=== PATIENT | male | born 1935 | race Caucasian/White ===

== ENCOUNTER 2019-09-16 09:37 | Inpatient (IN) ==
[2019-09-16 10:14] LABS: POC Blood Urea Nitrogen 10 mg/dl (8-23); POC CO2 26 mmol/L (22-30); POC Calcium, Ionized 1.14 mmol/L (1.16-1.32); POC Chloride 93 mmol/L (96-108); POC Creatinine 1.1 mg/dl (0.7-1.2); POC Glucose, Random 104 mg/dL (70-105); POC Potassium 4.8 mmol/L (3.3-5.1); POC Sodium 126 mmol/L (133-145)
[2019-09-16] MEDS ORDERED: 0.9 % SODIUM CHLORIDE 1,000 ML IV ONE (10:15)
--- NOTE | 2019-09-16 10:47 | Emergency Department Note ---
Weakness HPI - General Chief complaint: Weakness Stated complaint: weakness, SOB, confusion Time Seen by Provider: 09/16/19 09:54 Source: patient Mode of arrival: ambulatory Limitations: no limitations - History of Present Illness HPI Narrative: 84-year-old male presents with generalized weakness and some increasing in shortness of breath. States he is always short of breath but is worse than normal. Also feels generally weak. No fever or chills but states he is always cold so he wanted no. No nausea, vomiting, or diarrhea. States he does not h ave much appetite but that is usual for him. It is easier for him to breathe sitting up. He does have significant pedal edema but states this is chronic for him. Denies chest pain, no pain anywhere. States he does have a history of a triple bypass back in the s. He denies palpitations Associated symptoms: Reports: confusion (Family reports increasing confusion), loss of appetite (However chronic), shortness of breath. Denies: chest pain, diaphoresis, dysuria, fever/chills, headaches, nausea/vomiting, myalgias, rash, syncope - Related Data Home Medications Medication Instructions Recorded Confirmed levothyroxine 75 mcg tablet 75 mcg PO QAM tab 06/18/19 09/16/19 lisinopril 10 mg tablet 10 mg PO QAM tab 06/18/19 09/16/19 potassium chloride 10 mEq 10 meq PO QDAY 06/18/19 09/16/19 tablet,extended release(part/cryst) Previous Rx's Medication Instructions Recorded metoprolol succinate 25 mg 25 mg PO QDAY #30 tab 09/03/19 tablet,extended release 24 hr Allergies Allergy/AdvReac Type Severity Reaction Status Date / Time No Known Drug Intolerances Allergy Unknown Unknown Verified 09/16/19 09:41 Review of Systems All systems ED: reviewed and negative except as stated. Past Medical History - Past Medical History [facility] Narrative: Medical History (Last Reviewed 08/27/19 @ 09:56 by Maximiliano Brown MD) Pneumonia (Chronic ~07/2004) Low back pain syndrome (Chronic) Urinary urgency (Chronic) PVD (peripheral vascular disease) (Chronic) Right carotid bruit (Chronic) Hypothyroidism (Chronic) CAD (coronary artery disease) (Chronic) Hyperlipidemia (Chronic) Hypertension (Chronic) Postural hypotension (Chronic) Impacted cerumen, bilateral (Chronic) FH: stroke (Chronic) Encounter for long-term (current) use of medications (Chronic) Anxiety (Chronic) Encounter for smoking cessation counseling (Chronic) Past Surgical History (Last Reviewed 08/27/19 @ 09:56 by Maximiliano Brown MD) History of colonoscopy (Chronic ~2006) History of prostatectomy (Chronic ~2001) History of carotid endarterectomy (Chronic) History of aorto-femoral bypass (Chronic) History of coronary artery bypass graft (Chronic ~08/2001) Medical history: Reports: other (History of bigeminy) - Social History smoking status: Current every day smoker Alcohol use: Reports: None Drug use: Reports: none Physical Exam Limitations: no limitations General appearance: alert (Alert and oriented to person, place, time and situation however he does get confused at times.) Head: atraumatic, normocephalic, normal inspection Eye: Present: normal appearance. Absent: conjunctival injection ENT: Present: normal oropharynx, mucous membranes moist, TM's normal bilaterally Neck: Present: normal inspection, trachea midline Chest: Present: symmetric chest wall rise Respiratory: Present: normal lung sounds bilaterally, other (Diminished in the bases bilaterally otherwise clear throughout). Absent: respiratory distress, rales/crackles, accessory muscle use Cardiovascular: Present: normal heart sounds. Absent: normal rhythm (Bigeminy) Abdominal: Present: soft, normal bowel sounds. Absent: distention, tenderness, guarding, mass Extremities: Present: pedal edema (2+ to ankles and feet bilaterally). Absent: tenderness Neurological: Present: alert, oriented X3 Psychiatric: Present: normal affect, normal mood Skin: Present: warm, dry, intact Course Course Narrative: I did speak with her primary care provider, Dr. Brown and he states atrial fibrillation as well as bigeminy is chronic for this patient. Unfortunately were not able to pull up records or an EKG more recent than 2003. @ 1215 we have a call into hospitalist to talk about possible admission. At 1415, hospitalist agrees to accept this patient, Dr. Fernando Vital Signs Temperature 97.8 F 09/16/19 09:38 Pulse Rate 84 09/16/19 09:38 Respiratory Rate 18 09/16/19 09:38 Blood Pressure 165/75 09/16/19 09:38 Pulse Oximetry (%) 96 09/16/19 09:38 Temperature 97.8 F 09/16/19 09:38 Pulse Rate 68 09/16/19 12:16 Respiratory Rate 18 09/16/19 13:16 Blood Pressure 165/73 09/16/19 13:16 Pulse Oximetry (%) 93 09/16/19 13:16 Weakness - Lab Data Lab results reviewed: Yes I reviewed the patient's lab results. Result diagrams: 09/16/19 10:00 09/16/19 10:00 Lab Results 09/16/19 09/16/19 09/16/19 Range/Units 09:50 10:00 10:00 WBC 9.2 (4.5-11.0) K/mcL RBC 3.97 L (4.50-5.90) M/mcL Hgb 12.8 L (13.5-16.5) g/dL Hct 38.2 L (41.0-55.0) % POC Hct 40.0 L (41.0-55.0) % MCV 96.3 (80.0-100.0) fL MCH 32.2 (26.0-34.0) pg MCHC 33.4 (31.0-36.0) g/dL RDW 12.6 (11.5-14.5) % Plt Count 477 H (140-440) K/mcL MPV 6.8 L (7.4-10.4) fL Total Counted 100 Seg Neutrophils % 81 H (38-78) % Band Neutrophils % Not Reportable Lymphocytes % 13 L (15-49) % Monocytes % (Manual) 6 (1-12) % Platelet Estimate Increased A (NORMAL) RBC Morphology Normal (NORMAL) VBG Lactic Acid (0.5-2.0) mmol/L POC Sodium 126 L (133-145) mmol/L Sodium 126 L (133-145) mmol/L POC Potassium 4.8 (3.3-5.1) mmol/L Potassium 4.7 (3.3-5.1) mmol/L POC Chloride 93 L (96-108) mmol/L Chloride 92 L (96-108) mmol/L Carbon Dioxide 21 L (22-30) mmol/L POC Total CO2 26 (22-30) mmol/L Anion Gap 13.0 (8-16) POC BUN 10 (8-23) mg/dl BUN 11 (8-23) mg/dl Creatinine 1.0 (0.7-1.2) mg/dl POC Creatinine 1.1 (0.7-1.2) mg/dl GFR Calculation 68 Glucose 105 (70-105) mg/dL POC Glucose 104 (70-105) mg/dL Calcium 9.2 (8.6-10.4) mg/dl POC WB Ioniz Calcium 1.14 L (1.16-1.32) mmol/L Total Bilirubin 0.8 (0.0-1.0) mg/dL AST 20 (0-37) U/l ALT 11 (0-40) U/l Alkaline Phosphatase 67 (39-117) U/L Troponin T (0-0.03) ng/ml NT-Pro-B Natriuret Pep (0-450) pg/ml Total Protein 6.5 (5.9-8.4) gm/dL Albumin 4.0 (3.2-5.2) gm/dL Globulin 2.5 (2.2-3.7) gm/dL Albumin/Globulin Ratio 1.6 (1.0-2.3) TSH (0.27-5.01) uIU/ml Urine Color Yellow Urine Appearance Clear Urine pH 6.0 (5.0-9.0) Ur Specific [place] 1.018 (1.000-1.035) Urine Protein Neg (NEG) mg/dL Urine Glucose (UA) Negative (NEG) mg/dL Urine Ketones Neg (NEG) mg/dL Urine Occult Blood Neg (<0.03) mg/dL Urine Nitrate Neg (NEG) Urine Bilirubin Neg (NEG) mg/dL Urine Urobilinogen Neg (NEG) mg/dL Ur Leukocyte Esterase Neg (NEG) /uL Urine RBC 1 (0-1) /hpf Urine WBC 1 (0-4) /hpf Ur Squamous Epith Cells < 1 (0-4) /hpf Urine Bacteria 0 (0) /hpf Hyaline Casts 4 H (0-2) /lpf Urine Mucus Few (0) /hpf Ur Culture Indicated? No 09/16/19 09/16/19 09/16/19 Range/Units 10:00 10:00 10:00 WBC (4.5-11.0) K/mcL RBC (4.50-5.90) M/mcL Hgb (13.5-16.5) g/dL Hct (41.0-55.0) % POC Hct (41.0-55.0) % MCV (80.0-100.0) fL MCH (26.0-34.0) pg MCHC (31.0-36.0) g/dL RDW (11.5-14.5) % Plt Count (140-440) K/mcL MPV (7.4-10.4) fL Total Counted Seg Neutrophils % (38-78) % Band Neutrophils % Lymphocytes % (15-49) % Monocytes % (Manual) (1-12) % Platelet Estimate (NORMAL) RBC Morphology (NORMAL) VBG Lactic Acid 1.6 (0.5-2.0) mmol/L POC Sodium (133-145) mmol/L Sodium (133-145) mmol/L POC Potassium (3.3-5.1) mmol/L Potassium (3.3-5.1) mmol/L POC Chloride (96-108) mmol/L Chloride (96-108) mmol/L Carbon Dioxide (22-30) mmol/L POC Total CO2 (22-30) mmol/L Anion Gap (8-16) POC BUN (8-23) mg/dl BUN (8-23) mg/dl Creatinine (0.7-1.2) mg/dl POC Creatinine (0.7-1.2) mg/dl GFR Calculation Glucose (70-105) mg/dL POC Glucose (70-105) mg/dL Calcium (8.6-10.4) mg/dl POC WB Ioniz Calcium (1.16-1.32) mmol/L Total Bilirubin (0.0-1.0) mg/dL AST (0-37) U/l ALT (0-40) U/l Alkaline Phosphatase (39-117) U/L Troponin T < 0.01 (0-0.03) ng/ml NT-Pro-B Natriuret Pep 2552.0 H (0-450) pg/ml Total Protein (5.9-8.4) gm/dL Albumin (3.2-5.2) gm/dL Globulin (2.2-3.7) gm/dL Albumin/Globulin Ratio (1.0-2.3) TSH (0.27-5.01) uIU/ml Urine Color Urine Appearance Urine pH (5.0-9.0) Ur Specific [place] (1.000-1.035) Urine Protein (NEG) mg/dL Urine Glucose (UA) (NEG) mg/dL Urine Ketones (NEG) mg/dL Urine Occult Blood (<0.03) mg/dL Urine Nitrate (NEG) Urine Bilirubin (NEG) mg/dL Urine Urobilinogen (NEG) mg/dL Ur Leukocyte Esterase (NEG) /uL Urine RBC (0-1) /hpf Urine WBC (0-4) /hpf Ur Squamous Epith Cells (0-4) /hpf Urine Bacteria (0) /hpf Hyaline Casts (0-2) /lpf Urine Mucus (0) /hpf Ur Culture Indicated? 09/16/19 Range/Units 10:00 WBC (4.5-11.0) K/mcL RBC (4.50-5.90) M/mcL Hgb (13.5-16.5) g/dL Hct (41.0-55.0) % POC Hct (41.0-55.0) % MCV (80.0-100.0) fL MCH (26.0-34.0) pg MCHC (31.0-36.0) g/dL RDW (11.5-14.5) % Plt Count (140-440) K/mcL MPV (7.4-10.4) fL Total Counted Seg Neutrophils % (38-78) % Band Neutrophils % Lymphocytes % (15-49) % Monocytes % (Manual) (1-12) % Platelet Estimate (NORMAL) RBC Morphology (NORMAL) VBG Lactic Acid (0.5-2.0) mmol/L POC Sodium (133-145) mmol/L Sodium (133-145) mmol/L POC Potassium (3.3-5.1) mmol/L Potassium (3.3-5.1) mmol/L POC Chloride (96-108) mmol/L Chloride (96-108) mmol/L Carbon Dioxide (22-30) mmol/L POC Total CO2 (22-30) mmol/L Anion Gap (8-16) POC BUN (8-23) mg/dl BUN (8-23) mg/dl Creatinine (0.7-1.2) mg/dl POC Creatinine (0.7-1.2) mg/dl GFR Calculation Glucose (70-105) mg/dL POC Glucose (70-105) mg/dL Calcium (8.6-10.4) mg/dl POC WB Ioniz Calcium (1.16-1.32) mmol/L Total Bilirubin (0.0-1.0) mg/dL AST (0-37) U/l ALT (0-40) U/l Alkaline Phosphatase (39-117) U/L Troponin T (0-0.03) ng/ml NT-Pro-B Natriuret Pep (0-450) pg/ml Total Protein (5.9-8.4) gm/dL Albumin (3.2-5.2) gm/dL Globulin (2.2-3.7) gm/dL Albumin/Globulin Ratio (1.0-2.3) TSH 1.05 (0.27-5.01) uIU/ml Urine Color Urine Appearance Urine pH (5.0-9.0) Ur Specific [place] (1.000-1.035) Urine Protein (NEG) mg/dL Urine Glucose (UA) (NEG) mg/dL Urine Ketones (NEG) mg/dL Urine Occult Blood (<0.03) mg/dL Urine Nitrate (NEG) Urine Bilirubin (NEG) mg/dL Urine Urobilinogen (NEG) mg/dL Ur Leukocyte Esterase (NEG) /uL Urine RBC (0-1) /hpf Urine WBC (0-4) /hpf Ur Squamous Epith Cells (0-4) /hpf Urine Bacteria (0) /hpf Hyaline Casts (0-2) /lpf Urine Mucus (0) /hpf Ur Culture Indicated? - Radiology Data Radiology results reviewed: Yes I reviewed the patient's radiology results. Disposition Pt seen by [facility]LECTRIC[facility] OFFICE/PA only: Yes Clinical Impression: Generalized weakness, SOB (shortness of breath), Hyponatremia, Pedal edema Disposition: Xfer As Outpt/Obs ([facility]) Condition: Fair Referrals: Maximiliano Brown MD [Primary Care Provider] - Time of Disposition: 14:17
[2019-09-16 10:53] LABS: Hematocrit 38.2 % (41.0-55.0); Hemoglobin 12.8 g/dL (13.5-16.5); Mean Cell Volume 96.3 fL (80.0-100.0); Mean Corpuscular HGB Conc 33.4 g/dL (31.0-36.0); Mean Platelet Volume 6.8 fL (7.4-10.4); Platelet Count 477 K/mcL (140-440); RBC 3.97 M/mcL (4.50-5.90); Red Cell Distribution Width 12.6 % (11.5-14.5); WBC 9.2 K/mcL (4.5-11.0)
[2019-09-16 11:02] LABS: Appearance,Urine CLEAR; Bacteria,Urine 0 /hpf (0); Bilirubin,Urine NEG (NEG); Color,Urine YELLOW; Culture Indicated,Urine NO; Glucose,Urine (UA) NEGATIVE (NEG); Ketones,Urine NEG (NEG); Leukocyte Esterase,Urine NEG /uL (NEG); Mucus,Urine FEW /hpf (0); Nitrate,Urine NEG (NEG); Protein,Urine NEG (NEG); Specific Gravity,Urine 1.018 (1.000-1.035); Urine Blood NEG mg/dL (<0.03); Urine Hyaline Cast 4 /lpf (0-2); Urine RBC 1 /hpf (0-1); Urine Squamous Epithelial Cell < 1 /hpf (0-4); Urine WBC 1 /hpf (0-4); Urobilinogen,Urine NEG (NEG)
[2019-09-16 11:14] LABS: ALT/SGPT 11 U/l (0-40); AST/SGOT 20 U/l (0-37); Albumin/Globulin Ratio 1.6 (1.0-2.3); Alkaline Phosphatase 67 U/L (39-117); Bilirubin,Total 0.8 mg/dL (0.0-1.0); Blood Urea Nitrogen 11 mg/dl (8-23); Calcium 9.2 mg/dl (8.6-10.4); Carbon Dioxide 21 mmol/L (22-30); Globulin 2.5 gm/dL (2.2-3.7); Glomerular Filtration Rate 68; Glucose 105 mg/dL (70-105)
[2019-09-16 11:15] LABS: Chloride 92 mmol/L (96-108)
[2019-09-16 11:39] LABS: Lymphocytes % 13 % (15-49); Monocytes % (Manual) 6 % (1-12); Platelet Estimate INCREASED (NORMAL); RBC Morphology NORMAL (NORMAL); Segmented Neutrophils % 81 % (38-78)
[2019-09-16] MEDS ORDERED: FUROSEMIDE 20 MG/2 ML VIAL IV ONE (12:31)
--- NOTE | 2019-09-16 14:24 | Internal Med History&Physical ---
Medical - H&P: [facility] Patient information: Note initiated : 09/16/19 at 2:23 pm Service Date, if different from initiated Date: [] Patient: Lincoln Parks 84 y/o M admitted on for weakness, SOB, confusion. Chief Complaint: [] Chief complaint: Shortness of breath and confusion History of present illness: Mr. Parks is a 84 year old M with a known history of hypertension/coronary disease with CABG/aortofemoral bypass was a chain smoker and lives independently in an apartment complex. His daughter Carmen lives in the same apartment complex and keeps an eye on him. Patient has been independent and usually ambulates with a wheelchair. Over the last few weeks he has had progressive decline in functionality with increasing confusion weakness and loss of appetite. His BMI on presentation 17.8 down to skin and bones. He also has gotten progressively confused and was discovered by his daughter in a days. He was brought in for further evaluation due to increasing shortness of breath along with orthopnea. Patient denies recent sick contacts or changes in medication. He endorses to bilateral lower extremity swelling but denies diarrhea, dysuria, fever, rash shaking chills. He endorses to productive sputum but denies headache, glandular swelling, skin rash. Initial work-up in the ER was consistent with COPD exacerbation/sodium at 126 and severely deconditioned with a BMI of 17.8. Hospitalist service was consulted for admission in light of above At the time of evaluation patient is accompanied with his daughter Carmen. He was able to answer some of the questions. He is more lucid and aware of surroundings person and time and place. He denies active distress or symptoms. Review of systems A 10 point review system was performed and is negative except the one discussed above Medical - H&P: PMH Medical history: Low back pain syndrome (Chronic) Urinary urgency (Chronic) PVD (peripheral vascular disease) (Chronic) Right carotid bruit (Chronic) Hypothyroidism (Chronic) CAD (coronary artery disease) (Chronic) Hyperlipidemia (Chronic) Hypertension (Chronic) Postural hypotension (Chronic) Anxiety (Chronic) Encounter for smoking cessation counseling (Chronic) Surgical History History of colonoscopy (Chronic ~2006) History of prostatectomy (Chronic ~2001) History of carotid endarterectomy (Chronic) left History of aorto-femoral bypass (Chronic) Bilateral History of coronary artery bypass graft (Chronic ~08/2001) Family History Mother Stroke Asthma Father Heart disease Social History household members: spouse marital status: occupational status: retired leisure activities: other smoking status: Current every day smoker alcohol intake frequency: 2+ drinks per day substance use type: does not use additional history: Lives alone with daughter Carmen([place]) living in the same apartment [facility] Medical - H&P: Meds Home Medications Medication Instructions Recorded Confirmed Type levothyroxine 75 mcg tablet 75 mcg PO QAM tab 06/18/19 09/16/19 History lisinopril 10 mg tablet 10 mg PO QAM tab 06/18/19 09/16/19 History potassium chloride 10 mEq 10 meq PO QDAY 06/18/19 09/16/19 History tablet,extended release(part/cryst) metoprolol succinate 25 mg 25 mg PO QDAY #30 tab 09/03/19 09/16/19 Rx tablet,extended release 24 hr Allergies Allergy/AdvReac Type Severity Reaction Status Date / Time No Known Drug Allergies Allergy Unverified 09/16/19 15:24 Medical - H&P: Exam - Constitutional Vitals: Temp Pulse Resp BP Pulse Ox 97.8 F 68 18 165/73 93 09/16/19 09:38 09/16/19 12:16 09/16/19 13:16 09/16/19 13:16 09/16/19 13:16 General appearance: no acute distress Exam: Lucid and alert and cooperative Head normocephalic Temporal wasting Oral cavity dry Sunken eyes but movement symmetrical Neck no lymphadenopathy S1-S2 regular rhythm ESM grade 1 Patient chested midline sternotomy incision scar Scaphoid abdomen nontender Lower extremity 1+ pitting edema from the ankle to knee bilaterally Upper extremity skin full-thickness 4 mm Skin otherwise no suspicious lesion Psych alert cooperative no anxiety Neuro nonfocal moving all 4 extremities Medical - H&P: Reslt - Labs CBC & Chem 7: 09/16/19 10:00 09/16/19 10:00 Labs: Short CBC 09/16/19 Range/Units 10:00 WBC 9.2 (4.5-11.0) K/mcL Hgb 12.8 L (13.5-16.5) g/dL Hct 38.2 L (41.0-55.0) % Plt Count 477 H (140-440) K/mcL BMP 09/16/19 10:00 Sodium 126 L Potassium 4.7 Chloride 92 L Carbon Dioxide 21 L BUN 11 Creatinine 1.0 Glucose 105 Calcium 9.2 Cardiac Enzymes 09/16/19 Range/Units 10:00 Troponin T < 0.01 (0-0.03) ng/ml Liver Function 09/16/19 Range/Units 10:00 Total Bilirubin 0.8 (0.0-1.0) mg/dL AST 20 (0-37) U/l ALT 11 (0-40) U/l Alkaline Phosphatase 67 (39-117) U/L Albumin 4.0 (3.2-5.2) gm/dL Urine 09/16/19 Range/Units 09:50 Urine Color Yellow Urine Appearance Clear Urine pH 6.0 (5.0-9.0) Ur Specific [place] 1.018 (1.000-1.035) Urine Protein Neg (NEG) mg/dL Urine Glucose (UA) Negative (NEG) mg/dL Medical - H&P: A/P (1) Hyponatremia with excess extracellular fluid volume Current visit: Yes Status: Acute * COPD exacerbation-continue steroids/bronchodilators/supplemental oxygen. Smoking cessation counseling * Hypovolemic hyponatremia secondary to poor nutrition intake-continue regular diet/every 4 sodium checks. Urine and serum osmolality, rule out SIADH * Acute change in mental status secondary to hyponatremia. Close monitoring. * Severe deconditioning/weakness with self-care deficit and protein calorie malnutrition. BMI 17.8 . Dietitian consult/protein calorie supplements/monitor for refeeding syndrome * Lymphedema rule out CHF/right ventricular hypertrophy in the setting of COPD and smoking. Check echocardiogram, start diuresis * History of hypertension continue home medication including metoprolol/SONIDO in hibitor * Hypothyroidism continue thyroxine * Tobacco dependence-nicotine patch, counseled for tobacco cessation * Full code * Prophylaxis heparin Plan * Inpatient admission, anticipate a minimum of 2 midnight hospitalization in light of hyponatremia/COPD exacerbation and severe deconditioning * Steroids bronchodilators * Hyponatremia work-up * Aggressive PT OT/nutrition support for severe protein calorie malnutrition * Pre-existing well condition management on home meds * Discharge planning per case management likely SNF.
--- NOTE | 2019-09-16 14:40 | XRay Report ---
CLINICAL INFORMATION: shortness of breath, confusion, weakness COMPARISON: 12/03/2004 FINDINGS: Heart is mildly enlarged - increased. Mediastinum is, otherwise, normal. The pulmonary vessels are moderately distended and there is mild interstitial edema throughout both lungs. No infiltrates. Small right pleural effusion noted. IMPRESSION: Moderate CHF Interpreted and Authenticated by: Saúl Renteria 09/16/19
--- NOTE | 2019-09-16 14:50 | Cat Scan Report ---
CLINICAL INFORMATION: Confusion and weakness COMPARISON: None. TECHNIQUE: 2.5 mm helical slices were obtained in the skull base to vertex. Following reconstruction, axial reformatted images were reviewed at bone and parenchymal windows. The exam was performed using radiation dose optimization techniques including, but not limited to, automated exposure control, adjustment of the mA and/or kV according to patient size and use of iterative reconstruction technique. FINDINGS: The ventricles, sulci, fissures, and cisterns are symmetrically enlarged compatible with mild age-related atrophy - no subdural hemorrhage or extra-axial fluid collection appreciated. A moderate remote slit linear infarct involving most of the right external capsule with extension through the anterior limb of the right internal capsule into the deep right frontal white is noted. Small linear remote lacunar infarct inferior right cerebellum and the superior left cerebellum. Patchy chronic ischemic changes in the deep cerebral white matter are expected for age. There is no intracerebral hemorrhage, mass effect, edema or other acute finding. Bone windows show no osseous abnormality. IMPRESSION: Moderate patchy chronic ischemic changes and patchy chronic ischemic changes in the deep cerebral white matter - expected for age. 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 No acute findings Interpreted and Authenticated by: Saúl Renteria 09/16/19
[2019-09-16] MEDS ORDERED: ONDANSETRON 4 MG/2 ML VIAL IV PRN (15:18)
[2019-09-16] MEDS ORDERED: ACETAMINOPHEN 650 MG/65 ML BOTTLE IV PRN (15:18)
[2019-09-16] MEDS ORDERED: ACETAMINOPHEN 325 MG TABLET PO PRN (15:18)
[2019-09-16] MEDS ORDERED: MELATONIN 3 MG TABLET PO PRN (15:18)
[2019-09-16] MEDS: LEVOFLOXACIN 750 MG/150 ML BAG IV SCH (16:18)
[2019-09-16] MEDS: THIAMINE 100 MG TABLET PO SCH (16:22)
[2019-09-16 16:23] LABS: Osmolality,Urine 519 mOsm/kg (80-1000)
[2019-09-16 17:52] LABS: Sodium, Urine Random 72 mmol/L
[2019-09-16] MEDS: BUDESONIDE 0.5 MG/2 ML AMPUL.NEB NEB SCH (20:20)
[2019-09-16] MEDS: SENNOSIDES/DOCUSATE SODIUM 1 TAB TABLET PO SCH (20:41)
[2019-09-16] MEDS: DOCUSATE SODIUM 100 MG CAPSULE PO SCH (20:41)
[2019-09-16] MEDS: CYANOCOBALAMIN (VITAMIN B-12) 500 MCG TABLET PO SCH (20:42)
[2019-09-16] MEDS: 0.9 % SODIUM CHLORIDE 10 ML SYRINGE IV SCH (20:43)
[2019-09-16] MEDS: HEPARIN 5,000 UNIT/ML VIAL SQ SCH (20:45)
[2019-09-17 05:45] LABS: Hematocrit 35.3 % (41.0-55.0); Hemoglobin 11.8 g/dL (13.5-16.5); Mean Cell Volume 97.5 fL (80.0-100.0); Mean Corpuscular HGB Conc 33.5 g/dL (31.0-36.0); Mean Platelet Volume 6.9 fL (7.4-10.4); Platelet Count 395 K/mcL (140-440); RBC 3.62 M/mcL (4.50-5.90); Red Cell Distribution Width 12.6 % (11.5-14.5)
[2019-09-17 06:10] LABS: ALT/SGPT 10 U/l (0-40); AST/SGOT 16 U/l (0-37); Albumin 3.5 gm/dL (3.2-5.2); Albumin/Globulin Ratio 1.8 (1.0-2.3); Alkaline Phosphatase 60 U/L (39-117); Bilirubin,Direct < 0.2 mg/dL (0.0-0.3); Bilirubin,Total 0.7 mg/dL (0.0-1.0); Blood Urea Nitrogen 10 mg/dl (8-23); Calcium 8.7 mg/dl (8.6-10.4); Carbon Dioxide 24 mmol/L (22-30); Glomerular Filtration Rate 68; Glucose 88 mg/dL (70-105); Lactate Dehydrogenase 177 U/L (94-250); Phosphorous 3.9 mg/dL (2.7-4.5); Triglycerides 55 mg/dl (<150); Uric Acid 3.9 mg/dL (2.5-8.0)
[2019-09-17 06:14] LABS: Chloride 95 mmol/L (96-108)
[2019-09-17] MEDS: LEVOTHYROXINE 75 MCG TABLET PO SCH (07:02)
[2019-09-17] MEDS: POTASSIUM CHLORIDE 10 MEQ TABLET PO SCH (07:02)
[2019-09-17] MEDS: LISINOPRIL 10 MG TABLET PO SCH (08:15)
[2019-09-17] MEDS: DOCUSATE SODIUM 100 MG CAPSULE PO SCH ×2 (08:15→21:11)
[2019-09-17] MEDS: THIAMINE 100 MG TABLET PO SCH (08:16)
[2019-09-17] MEDS: METOPROLOL SUCCINATE 25 MG TAB.XL.24H PO SCH (08:16)
[2019-09-17] MEDS: HEPARIN 5,000 UNIT/ML VIAL SQ SCH ×2 (08:16→21:12)
[2019-09-17] MEDS: MULTIVIT,THER IRON,CA,FA & MIN 1 TABLET PO SCH (08:16)
[2019-09-17] MEDS: FOLIC ACID 1 MG TABLET PO SCH (08:16)
[2019-09-17 08:33] LABS: Basophils % (Manual) 1 % (0-2); Eosinophils % (Manual) 2 % (0-7); Lymphocytes % 7 % (15-49); Monocytes % (Manual) 7 % (1-12); Platelet Estimate NORMAL (NORMAL); RBC Morphology NORMAL (NORMAL); Segmented Neutrophils % 83 % (38-78)
[2019-09-17] MEDS: 0.9 % SODIUM CHLORIDE 10 ML SYRINGE IV SCH ×3 (09:31→21:15)
[2019-09-17] MEDS: NICOTINE 21 MG PATCH TOPICAL SCH (09:57)
[2019-09-17] MEDS: CYANOCOBALAMIN (VITAMIN B-12) 500 MCG TABLET PO SCH ×2 (09:57→21:10)
[2019-09-17] MEDS: BUDESONIDE 0.5 MG/2 ML AMPUL.NEB NEB SCH ×2 (10:25→20:38)
[2019-09-17] MEDS ORDERED: METOPROLOL TARTRATE 5 MG/5 ML VIAL IV PRN (11:28)
--- NOTE | 2019-09-17 11:30 | Internal Med Progress Note ---
Medical - PN: Subj Patient information: Note initiated : 09/17/19 at 11:24 am Service Date, if different from initiated Date: [] Patient: Lincoln Parks 84 y/o M admitted on 09/16/19 for weakness, SOB, confusion. Chief Complaint: [] Interval history: Mr. Parks is a 84 year old M with a known history of hypertension/coronary disease with CABG/aortofemoral bypass was a chain smoker and lives independently in an apartment complex. His daughter Carmen lives in the same apartment complex and keeps an eye on him. Patient has been independent and usually ambulates with a wheelchair. Over the last few weeks he has had progressive decline in functionality with increasing confusion weakness and loss of appetite . His BMI on presentation 17.8 down to skin and bones. He also has gotten progressively confused and was discovered by his daughter in a days. He was brought in for further evaluation due to increasing shortness of breath along with orthopnea. Patient denies recent sick contacts or changes in medication. He endorses to bilateral lower extremity swelling but denies diarrhea, dysuria, fever, rash shaking chills. He endorses to productive sputum but denies headache, glandular swelling, skin rash. Initial work-up in the ER was consistent with COPD exacerbation/sodium at 126 and severely deconditioned with a BMI of 17.8. Hospitalist service was consulted for admission in light of above At the time of evaluation patient is accompanied with his daughter Carmen. He was able to answer some of the questions. He is more lucid and aware of surroundings person and time and place. He denies active distress or symptoms. 09/17-patient doing well. Sodium at 132. 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 Dietitian consult for aggressive protein calorie supplements/monitoring for refeeding syndrome. Continue with aggressive R replacement/multivitamins. Patient unwilling to stay any longer. However extremely deconditioned and will require SNF placement due to self-care deficits. Improved work of breathing. Sodium up to 132. Smoking cessation counseling performed. On nicotine patch. New onset 2:1 atrial flutter.. Started on diltiazem. Fluid restriction to 1500 cc a day/regular diet - Constitutional Vitals: Vital Signs Temp Pulse Resp BP Pulse Ox 98.2 F 58 L 20 172/98 93 09/17/19 08:00 09/17/19 10:26 09/17/19 08:00 09/17/19 08:00 09/17/19 08:00 Period Temp Pulse Resp BP Sys/Ortiz Pulse Ox Last 24 Hr 97.3 F-98.2 F 49-101 14-21 115-177/44-98 92-98 Intake and Output 09/16/19 09/17/19 09/17/19 21:59 05:59 13:59 Intake Total 120 120 120 Output Total 225 0 Balance -105 120 120 Weight 110 lb 8 oz 111 lb 2 oz Intake & Output: Intake & Output 09/16/19 09/17/19 09/17/19 21:59 05:59 13:59 Intake Total 120 120 120 Output Total 225 0 Balance -105 120 120 Weight 110 lb 8 oz 111 lb 2 oz Intake: Oral 120 120 120 Output: Void Amount 225 0 Other: Meal Dinner Breakfast Percent of Meal Consumed 100% 15% Feeding Ability Independent Assist with Tray Set Up Medical - PN: Obj Da - Labs CBC & Chem 7: 09/17/19 04:40 09/17/19 08:07 Labs: Abnormal Lab Results 09/17/19 09/17/19 09/17/19 08:07 04:40 04:40 RBC 3.62 L Hgb 11.8 L Hct 35.3 L POC Hct Plt Count MPV 6.9 L Seg Neutrophils % 83 H Lymphocytes % 7 L Platelet Estimate POC Sodium Sodium 132 L 130 L POC Chloride Chloride 95 L Carbon Dioxide Osmolality POC WB Ioniz Calcium NT-Pro-B Natriuret Pep Total Protein 5.5 L Globulin 2.0 L Hyaline Casts 09/17/19 09/16/19 09/16/19 00:05 20:34 16:40 RBC Hgb Hct POC Hct Plt Count MPV Seg Neutrophils % Lymphocytes % Platelet Estimate POC Sodium Sodium 130 L 129 L 129 L POC Chloride Chloride Carbon Dioxide Osmolality POC WB Ioniz Calcium NT-Pro-B Natriuret Pep Total Protein Globulin Hyaline Casts 09/16/19 09/16/19 09/16/19 10:00 10:00 10:00 RBC Hgb Hct POC Hct 40.0 L Plt Count MPV Seg Neutrophils % Lymphocytes % Platelet Estimate POC Sodium 126 L Sodium 126 L POC Chloride 93 L Chloride 92 L Carbon Dioxide 21 L Osmolality 272 L POC WB Ioniz Calcium 1.14 L NT-Pro-B Natriuret Pep 2552.0 H Total Protein Globulin Hyaline Casts 09/16/19 09/16/19 10:00 09:50 RBC 3.97 L Hgb 12.8 L Hct 38.2 L POC Hct Plt Count 477 H MPV 6.8 L Seg Neutrophils % 81 H Lymphocytes % 13 L Platelet Estimate Increased A POC Sodium Sodium POC Chloride Chloride Carbon Dioxide Osmolality POC WB Ioniz Calcium NT-Pro-B Natriuret Pep Total Protein Globulin Hyaline Casts 4 H Meds: Medications Acetaminophen (Tylenol) 650 mg PO Q4-6HP PRN; Protocol PRN Reason: Per Pain Protocol/Fever > 101 Albuterol/Ipratropium (Duoneb) 3 ml NEB Q4HP PRN PRN Reason: Shortness Of Breath Budesonide (Pulmicort) 0.5 mg NEB Q12 [facility] Last Admin: 09/17/19 10:25 Dose: 0.5 mg Documented by: Cyanocobalamin (Vitamin B-12) 1,000 mcg PO BID [facility] Stop: 09/21/19 09:01 Last Admin: 09/17/19 09:57 Dose: 1,000 mcg Documented by: Docusate Sodium (Colace) 100 mg PO BID [facility] Last Admin: 09/17/19 08:15 Dose: 100 mg Documented by: Folic Acid (Folic Acid) 1 mg PO DAILY [facility] Last Admin: 09/17/19 08:16 Dose: 1 mg Documented by: Heparin Sodium (Porcine) (Heparin) 5,000 unit SQ Q12 [facility] Last Admin: 09/17/19 08:16 Dose: 5,000 unit Documented by: Acetaminophen (Ofirmev) 650 mg in 65 mls @ 130 mls/hr IV Q6HP PRN; Protocol PRN Reason: Per Pain Protocol/Fever > 101 Levofloxacin (Levaquin) 750 mg in 150 mls @ 100 mls/hr IV Q48H [facility]; Protocol Last Admin: 09/16/19 16:18 Dose: 100 mls/hr Documented by: Iron Carb/Multivit/Recovery Auditor/Folic Acid (Multivitamin W/Minerals) 1 tab PO DAILY [facility] Last Admin: 09/17/19 08:16 Dose: 1 tab Documented by: Levothyroxine Sodium (Synthroid) 75 mcg PO QAMAC [facility] Last Admin: 09/17/19 07:02 Dose: 75 mcg Documented by: Lisinopril (Zestril) 10 mg PO QAM [facility] Last Admin: 09/17/19 08:15 Dose: 10 mg Documented by: Melatonin (Melatonin 3mg Tablet) 3 mg PO HSP PRN PRN Reason: Insomnia Metoprolol Succinate (Toprol Xl) 25 mg PO QDAY [facility] Last Admin: 09/17/19 08:16 Dose: 25 mg Documented by: Nicotine (Nicoderm) 21 mg TOPICAL DAILY@1000 [facility] Last Admin: 09/17/19 09:57 Dose: 21 mg Documented by: Ondansetron HCl (Zofran) 4 mg IV Q4-6HP PRN; Protocol PRN Reason: Nausea And Vomiting Potassium Chloride (Kdur) 10 meq PO QAC [facility] Last Admin: 09/17/19 07:02 Dose: 10 meq Documented by: Senna/Docusate Sodium (Senna Plus Tablet) 1 tab PO HS [facility] Last Admin: 09/16/19 20:41 Dose: 1 tab Documented by: Sodium Chloride (Saline Flush) 10 ml IV Q8 [facility] Last Admin: 09/17/19 09:31 Dose: Not Given Documented by: Thiamine HCl (Vitamin B1) 100 mg PO DAILY [facility] Last Admin: 09/17/19 08:16 Dose: 100 mg Documented by: Medical - PN: A/P - Time Spent With Patient Total time spent is greater than 50% in coordination of care (as documented) at patient's floor/unit and/or counseling patient: Greater than 35 minutes (1) Hyponatremia with excess extracellular fluid volume Status: Acute Assessment and plan: * COPD exacerbation-continue steroids/bronchodilators/supplemental oxygen. Smoking cessation counseling * New onset atrial fibrillation-rate control measures with diltiazem drip/metoprolol. Continue home dose metoprolol and increased dose to effect. Discuss anticoagulation in light of chads Vasc score mandating anticoagulation. Echocardiogram today. 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 Clinically improved. Patient lucid and alert this morning and appears close to his baseline * Severe deconditioning/weakness with self-care deficit and protein calorie malnutrition. BMI 17.8 . Dietitian consulted/initiate protein calorie supplements/monitor for refeeding syndrome and aggressive electrolytes and MVI replacement * Lymphedema rule out CHF/right ventricular hypertrophy in the setting of COPD and smoking. Await echocardiogram, gentle diuresis * History of hypertension continue home medication including metoprolol/SONIDO inhibitor * Hypothyroidism continue thyroxine * Tobacco dependence-nicotine patch, counseled for tobacco cessation * Full code * Prophylaxis heparin Plan * Diltiazem drip/rate control measures/echocardiogram * Gentle diuresis * Steroids bronchodilators * Aggressive PT OT * Free water restriction, salt tabs * Dietitian consult for severe protein calorie malnutrition * Pre-existing medical condition management on home meds * Discharge planning per case management likely SNF * Continue site monitor Current Visit: Yes Medical - PN: Qual - VTE Deep Vein Thrombosis/Pulmonary Embolism Present on Admission: No
[2019-09-17] MEDS ORDERED: DILTIAZEM 125 MG in DEXTROSE 5% IN WATER 100 ML IV SCH (12:00)
[2019-09-17] MEDS: SODIUM CHLORIDE 1 GM TABLET PO SCH ×2 (16:03→21:14)
[2019-09-17] MEDS: SENNOSIDES/DOCUSATE SODIUM 1 TAB TABLET PO SCH (21:06)
[2019-09-18] MEDS ORDERED: METOPROLOL TARTRATE 5 MG/5 ML VIAL IV PRN (05:38)
[2019-09-18 05:45] LABS: Hematocrit 37.2 % (41.0-55.0); Hemoglobin 12.3 g/dL (13.5-16.5); Mean Cell Volume 97.2 fL (80.0-100.0); Mean Corpuscular HGB Conc 33.1 g/dL (31.0-36.0); Mean Platelet Volume 7.1 fL (7.4-10.4); Platelet Count 402 K/mcL (140-440); RBC 3.83 M/mcL (4.50-5.90); Red Cell Distribution Width 12.5 % (11.5-14.5); WBC 13.2 K/mcL (4.5-11.0)
[2019-09-18] MEDS ORDERED: METOPROLOL TARTRATE 5 MG/5 ML VIAL IV ONE (05:45)
[2019-09-18 06:55] LABS: ALT/SGPT 9 U/l (0-40); AST/SGOT 16 U/l (0-37); Albumin 3.5 gm/dL (3.2-5.2); Albumin/Globulin Ratio 1.5 (1.0-2.3); Alkaline Phosphatase 69 U/L (39-117); Bilirubin,Direct 0.2 mg/dL (0.0-0.3); Bilirubin,Total 0.7 mg/dL (0.0-1.0); Blood Urea Nitrogen 14 mg/dl (8-23); Calcium 8.9 mg/dl (8.6-10.4); Carbon Dioxide 25 mmol/L (22-30); Chloride 96 mmol/L (96-108); Globulin 2.4 gm/dL (2.2-3.7); Glomerular Filtration Rate 68; Glucose 115 mg/dL (70-105); Lactate Dehydrogenase 181 U/L (94-250); Phosphorous 3.8 mg/dL (2.7-4.5); Triglycerides 45 mg/dl (<150); Uric Acid 3.7 mg/dL (2.5-8.0)
[2019-09-18] MEDS: LEVOTHYROXINE 75 MCG TABLET PO SCH (07:27)
[2019-09-18] MEDS: 0.9 % SODIUM CHLORIDE 10 ML SYRINGE IV SCH ×3 (07:27→21:29)
[2019-09-18] MEDS: IPRATROPIUM/ALBUTEROL 3 ML AMPUL.NEB NEB PRN (07:30)
[2019-09-18 07:48] LABS: Lymphocytes % 2 % (15-49); Monocytes % (Manual) 9 % (1-12); Platelet Estimate NORMAL (NORMAL); RBC Morphology NORMAL (NORMAL); Segmented Neutrophils % 89 % (38-78)
[2019-09-18] MEDS: MULTIVIT,THER IRON,CA,FA & MIN 1 TABLET PO SCH (08:41)
[2019-09-18] MEDS: THIAMINE 100 MG TABLET PO SCH (08:41)
[2019-09-18] MEDS: CYANOCOBALAMIN (VITAMIN B-12) 500 MCG TABLET PO SCH ×2 (08:41→21:25)
[2019-09-18] MEDS: FOLIC ACID 1 MG TABLET PO SCH (08:41)
[2019-09-18] MEDS: LISINOPRIL 10 MG TABLET PO SCH (08:41)
[2019-09-18] MEDS: METOPROLOL SUCCINATE 25 MG TAB.XL.24H PO SCH (08:41)
[2019-09-18] MEDS: POTASSIUM CHLORIDE 10 MEQ TABLET PO SCH (08:41)
[2019-09-18] MEDS: DOCUSATE SODIUM 100 MG CAPSULE PO SCH ×2 (08:41→21:25)
[2019-09-18] MEDS: SODIUM CHLORIDE 1 GM TABLET PO SCH ×3 (08:41→21:25)
[2019-09-18] MEDS: HEPARIN 5,000 UNIT/ML VIAL SQ SCH ×2 (08:41→21:28)
[2019-09-18] MEDS: LEVOFLOXACIN 750 MG/150 ML BAG IV SCH (08:57)
[2019-09-18] MEDS: BUDESONIDE 0.5 MG/2 ML AMPUL.NEB NEB SCH ×2 (09:28→21:53)
[2019-09-18] MEDS ORDERED: METOPROLOL SUCCINATE 25 MG TAB.XL.24H PO ONE (10:54)
[2019-09-18] MEDS ORDERED: LISINOPRIL 10 MG TABLET PO ONE (10:54)
--- NOTE | 2019-09-18 10:58 | Internal Med Progress Note ---
Medical - PN: Subj Patient information: Note initiated : 09/18/19 at 10:53 am Service Date, if different from initiated Date: [] Patient: Lincoln Parks 84 y/o M admitted on 09/16/19 for weakness, SOB, confusion. Chief Complaint: [] Interval history: Mr. Parks is a 84 year old M with a known history of hypertension/coronary disease with CABG/aortofemoral bypass was a chain smoker and lives independently in an apartment complex. His daughter Carmen lives in the same apartment complex and keeps an eye on him. Patient has been independent and usually ambulates with a wheelchair. Over the last few weeks he has had progressive decline in functionality with increasing confusion weakness and loss of appetite . His BMI on presentation 17.8 down to skin and bones. He also has gotten progressively confused and was discovered by his daughter in a days. He was brought in for further evaluation due to increasing shortness of breath along with orthopnea. Patient denies recent sick contacts or changes in medication. He endorses to bilateral lower extremity swelling but denies diarrhea, dysuria, fever, rash shaking chills. He endorses to productive sputum but denies headache, glandular swelling, skin rash. Initial work-up in the ER was consistent with COPD exacerbation/sodium at 126 and severely deconditioned with a BMI of 17.8. Hospitalist service was consulted for admission in light of above At the time of evaluation patient is accompanied with his daughter Carmen. He was able to answer some of the questions. He is more lucid and aware of surroundings person and time and place. He denies active distress or symptoms. 09/17-patient doing well. Sodium at 132. 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 Dietitian consult for aggressive protein calorie supplements/monitoring for refeeding syndrome. Continue with aggressive R replacement/multivitamins. Patient unwilling to stay any longer. However extremely deconditioned and will require SNF placement due to self-care deficits. Improved work of breathing. Sodium up to 132. Smoking cessation counseling performed. On nicotine patch. New onset 2:1 atrial flutter.. Started on diltiazem. Fluid restriction to 1500 cc a day/regular diet 09/18-recurrent A. fib with RVR. Status post IV metoprolol. Heart rate improved to 78. Ongoing physical therapy. Appears short of breath. On 2 L oxygen. Systolics around 170. Increase lisinopril to 20/metoprolol to 50 daily. Continue monitoring. PT OT. Nutrition support. Sodium 133, total protein improved to 5.9.Continue PT OT eval and treatments. Case management to coordinate SNF transfer once ready for discharge - Constitutional Vitals: Vital Signs Temp Pulse Resp BP Pulse Ox 98.1 F 100 H 18 170/82 97 09/18/19 02:51 09/18/19 09:30 09/18/19 09:30 09/18/19 08:00 09/18/19 09:30 Period Temp Pulse Resp BP Sys/Ortiz Pulse Ox Last 24 Hr 98.0 F-99.6 F 61-152 18-20 110-184/50-86 91-99 Intake and Output 09/17/19 09/18/19 09/18/19 21:59 05:59 13:59 Intake Total 360 300 150 Output Total 101 2 Balance 259 298 150 Weight 109 lb 8 oz Intake & Output: Intake & Output 09/17/19 09/18/19 09/18/19 21:59 05:59 13:59 Intake Total 360 300 150 Output Total 101 2 Balance 259 298 150 Weight 109 lb 8 oz Intake: IV 150 Oral 360 300 Output: Void Amount 100 # of times incontinent of urine 1 2 Other: Meal Dinner Breakfast Percent of Meal Consumed 75% 100% Feeding Ability Assist with Tray Set Up General appearance: moderate distress Exam: Minimally short of breath A. fib RVR on telemetry Weak fatigue Minimally labored breathing Medical - PN: Obj Da - Labs CBC & Chem 7: 09/18/19 04:12 09/18/19 04:12 Labs: Abnormal Lab Results 09/18/19 09/18/19 09/17/19 04:12 04:12 11:58 WBC 13.2 H RBC 3.83 L Hgb 12.3 L Hct 37.2 L POC Hct Plt Count MPV 7.1 L Seg Neutrophils % 89 H Lymphocytes % 2 L Platelet Estimate POC Sodium Sodium 130 L POC Chloride Chloride Carbon Dioxide Glucose 115 H Osmolality POC WB Ioniz Calcium NT-Pro-B Natriuret Pep Total Protein Globulin Hyaline Casts 09/17/19 09/17/19 09/17/19 08:07 04:40 04:40 WBC RBC 3.62 L Hgb 11.8 L Hct 35.3 L POC Hct Plt Count MPV 6.9 L Seg Neutrophils % 83 H Lymphocytes % 7 L Platelet Estimate POC Sodium Sodium 132 L 130 L POC Chloride Chloride 95 L Carbon Dioxide Glucose Osmolality POC WB Ioniz Calcium NT-Pro-B Natriuret Pep Total Protein 5.5 L Globulin 2.0 L Hyaline Casts 09/17/19 09/16/19 09/16/19 00:05 20:34 16:40 WBC RBC Hgb Hct POC Hct Plt Count MPV Seg Neutrophils % Lymphocytes % Platelet Estimate POC Sodium Sodium 130 L 129 L 129 L POC Chloride Chloride Carbon Dioxide Glucose Osmolality POC WB Ioniz Calcium NT-Pro-B Natriuret Pep Total Protein Globulin Hyaline Casts 09/16/19 09/16/19 09/16/19 10:00 10:00 10:00 WBC RBC Hgb Hct POC Hct 40.0 L Plt Count MPV Seg Neutrophils % Lymphocytes % Platelet Estimate POC Sodium 126 L Sodium 126 L POC Chloride 93 L Chloride 92 L Carbon Dioxide 21 L Glucose Osmolality 272 L POC WB Ioniz Calcium 1.14 L NT-Pro-B Natriuret Pep 2552.0 H Total Protein Globulin Hyaline Casts 09/16/19 09/16/19 10:00 09:50 WBC RBC 3.97 L Hgb 12.8 L Hct 38.2 L POC Hct Plt Count 477 H MPV 6.8 L Seg Neutrophils % 81 H Lymphocytes % 13 L Platelet Estimate Increased A POC Sodium Sodium POC Chloride Chloride Carbon Dioxide Glucose Osmolality POC WB Ioniz Calcium NT-Pro-B Natriuret Pep Total Protein Globulin Hyaline Casts 4 H Meds: Medications Acetaminophen (Tylenol) 650 mg PO Q4-6HP PRN; Protocol PRN Reason: Per Pain Protocol/Fever > 101 Albuterol/Ipratropium (Duoneb) 3 ml NEB Q4HP PRN PRN Reason: Shortness Of Breath Last Admin: 09/18/19 07:30 Dose: 3 ml Documented by: Budesonide (Pulmicort) 0.5 mg NEB Q12 [facility] Last Admin: 09/18/19 09:28 Dose: 0.5 mg Documented by: Cyanocobalamin (Vitamin B-12) 1,000 mcg PO BID [facility] Stop: 09/21/19 09:01 Last Admin: 09/18/19 08:41 Dose: 1,000 mcg Documented by: Docusate Sodium (Colace) 100 mg PO BID [facility] Last Admin: 09/18/19 08:41 Dose: 100 mg Documented by: Folic Acid (Folic Acid) 1 mg PO DAILY [facility] Last Admin: 09/18/19 08:41 Dose: 1 mg Documented by: Heparin Sodium (Porcine) (Heparin) 5,000 unit SQ Q12 [facility] Last Admin: 09/18/19 08:41 Dose: 5,000 unit Documented by: Acetaminophen (Ofirmev) 650 mg in 65 mls @ 130 mls/hr IV Q6HP PRN; Protocol PRN Reason: Per Pain Protocol/Fever > 101 Levofloxacin (Levaquin) 750 mg in 150 mls @ 100 mls/hr IV Q48H [facility]; Protocol Last Admin: 09/18/19 08:57 Dose: 750 mls/hr Documented by: Iron Carb/Multivit/Motor Electrician/Folic Acid (Multivitamin W/Minerals) 1 tab PO DAILY [facility] Last Admin: 09/18/19 08:41 Dose: 1 tab Documented by: Levothyroxine Sodium (Synthroid) 75 mcg PO QAMAC [facility] Last Admin: 09/18/19 07:27 Dose: 75 mcg Documented by: Lisinopril (Zestril) 10 mg PO QAM [facility] Last Admin: 09/18/19 08:41 Dose: 10 mg Documented by: Melatonin (Melatonin 3mg Tablet) 3 mg PO HSP PRN PRN Reason: Insomnia Metoprolol Succinate (Toprol Xl) 25 mg PO QDAY [facility] Last Admin: 09/18/19 08:41 Dose: 25 mg Documented by: Metoprolol Tartrate (Lopressor) 5 mg IV Q5M PRN PRN Reason: Tachyarrhythmias Nicotine (Nicoderm) 21 mg TOPICAL DAILY@1000 [facility] Last Admin: 09/17/19 09:57 Dose: 21 mg Documented by: Ondansetron HCl (Zofran) 4 mg IV Q4-6HP PRN; Protocol PRN Reason: Nausea And Vomiting Potassium Chloride (Kdur) 10 meq PO QAMCC [facility] Last Admin: 09/18/19 08:41 Dose: 10 meq Documented by: Senna/Docusate Sodium (Senna Plus Tablet) 1 tab PO HS [facility] Last Admin: 09/17/19 21:06 Dose: 1 tab Documented by: Sodium Chloride (Saline Flush) 10 ml IV Q8 [facility] Last Admin: 09/18/19 07:27 Dose: 10 ml Documented by: Sodium Chloride (Sodium Chloride) 1 gm PO TID [facility] Last Admin: 09/18/19 08:41 Dose: 1 gm Documented by: Thiamine HCl (Vitamin B1) 100 mg PO DAILY [facility] Last Admin: 09/18/19 08:41 Dose: 100 mg Documented by: Medical - PN: A/P - Time Spent With Patient Total time spent is greater than 50% in coordination of care (as documented) at patient's floor/unit and/or counseling patient: 25 - 35 minutes (1) Hyponatremia with excess extracellular fluid volume Status: Acute Assessment and plan: * A. fib RVR-improved with beta-reyna. Increased dose of metoprolol to 50. * COPD exacerbation-continue steroids/bronchodilators/supplemental oxygen. Smoking cessation counseling * New onset atrial fibrillation-rate control measures with diltiazem drip/metoprolol. Discussed anticoagulation in light of chads Vasc score mandating anticoagulation. Echocardiogram results pending. * Poorly controlled hypertension-increased dose of lisinopril/metoprolol Target systolics around 140 * Euvolemic hyponatremia consistent with SIADH with increased urine osmolality- improving with free water restriction/salt tabs * Acute change in mental status secondary to hyponatremia. Clinically improved. Now at baseline * Severe deconditioning/weakness with self-care deficit and protein calorie malnutrition. BMI 17.8 . Dietitian consulted/initiate protein calorie supplements/monitor for refeeding syndrome and aggressive electrolytes and MVI replacement * Lymphedema rule out CHF/right ventricular hypertrophy in the setting of COPD and smoking. Await echocardiogram, gentle diuresis * History of hypertension continue home medication including metoprolol/SONIDO inhibitor * Hypothyroidism continue thyroxine * Tobacco dependence-nicotine patch, counseled for tobacco cessation * Full code * Prophylaxis heparin Plan * Increase beta-reyna dose/SONIDO inhibitor * Continue gentle diuresis * Steroids bronchodilators * Aggressive PT OT * Anticoagulation if patient agreeable for CVA prophylaxis * Continue Free water restriction, salt tabs * Supplements for severe protein calorie malnutrition * Pre-existing medical condition management on home meds * Discharge planning per case management likely SNF Current Visit: Yes Medical - PN: Qual - VTE Deep Vein Thrombosis/Pulmonary Embolism Present on Admission: No
[2019-09-18] MEDS: NICOTINE 21 MG PATCH TOPICAL SCH (13:49)
[2019-09-18] MEDS: SENNOSIDES/DOCUSATE SODIUM 1 TAB TABLET PO SCH (21:25)
[2019-09-19 06:25] LABS: Hematocrit 32.9 % (41.0-55.0); Hemoglobin 11.6 g/dL (13.5-16.5); Mean Cell Volume 93.8 fL (80.0-100.0); Mean Corpuscular HGB Conc 35.1 g/dL (31.0-36.0); Mean Platelet Volume 7.8 fL (7.4-10.4); Platelet Count 352 K/mcL (140-440); RBC 3.51 M/mcL (4.50-5.90); Red Cell Distribution Width 12.2 % (11.5-14.5); WBC 11.5 K/mcL (4.5-11.0)
[2019-09-19 06:48] LABS: Band Neutrophils % 1 % (0-10); Lymphocytes % 5 % (15-49); Monocytes % (Manual) 15 % (1-12); Platelet Estimate NORMAL (NORMAL); RBC Morphology NORMAL (NORMAL); Segmented Neutrophils % 79 % (38-78)
[2019-09-19 06:50] LABS: ALT/SGPT 10 U/l (0-40); AST/SGOT 15 U/l (0-37); Albumin 3.2 gm/dL (3.2-5.2); Albumin/Globulin Ratio 1.5 (1.0-2.3); Alkaline Phosphatase 59 U/L (39-117); Bilirubin,Direct 0.3 mg/dL (0.0-0.3); Bilirubin,Total 0.8 mg/dL (0.0-1.0); Blood Urea Nitrogen 16 mg/dl (8-23); Calcium 8.7 mg/dl (8.6-10.4); Carbon Dioxide 26 mmol/L (22-30); Chloride 99 mmol/L (96-108); Globulin 2.2 gm/dL (2.2-3.7); Glomerular Filtration Rate 78; Glucose 110 mg/dL (70-105); Lactate Dehydrogenase 155 U/L (94-250); Phosphorous 3.9 mg/dL (2.7-4.5); Triglycerides 35 mg/dl (<150); Uric Acid 3.6 mg/dL (2.5-8.0)
[2019-09-19] MEDS: HEPARIN 5,000 UNIT/ML VIAL SQ SCH (08:42)
[2019-09-19] MEDS: MULTIVIT,THER IRON,CA,FA & MIN 1 TABLET PO SCH (08:43)
[2019-09-19] MEDS: THIAMINE 100 MG TABLET PO SCH (08:43)
[2019-09-19] MEDS: LEVOTHYROXINE 75 MCG TABLET PO SCH (08:43)
[2019-09-19] MEDS: POTASSIUM CHLORIDE 10 MEQ TABLET PO SCH (08:43)
[2019-09-19] MEDS: DOCUSATE SODIUM 100 MG CAPSULE PO SCH (08:43)
[2019-09-19] MEDS: SODIUM CHLORIDE 1 GM TABLET PO SCH (08:43)
[2019-09-19] MEDS: FOLIC ACID 1 MG TABLET PO SCH (08:44)
[2019-09-19] MEDS: 0.9 % SODIUM CHLORIDE 10 ML SYRINGE IV SCH (08:44)
[2019-09-19] MEDS ORDERED: METOPROLOL SUCCINATE 50 MG TAB.XL.24H PO SCH (09:00)
[2019-09-19] MEDS ORDERED: LISINOPRIL 10 MG TABLET PO SCH (09:00)
[2019-09-19] MEDS: CYANOCOBALAMIN (VITAMIN B-12) 500 MCG TABLET PO SCH (09:30)
[2019-09-19] MEDS: BUDESONIDE 0.5 MG/2 ML AMPUL.NEB NEB SCH (09:44)
[2019-09-19] MEDS: IPRATROPIUM/ALBUTEROL 3 ML AMPUL.NEB NEB PRN (09:44)
--- NOTE | 2019-09-19 10:38 | Discharge Summary ---
Medical - DS: Prov Patient information: Note initiated : 09/19/19 at 10:33 am Service Date, if different from initiated Date: [] Patient: Lincoln Parks 84 y/o M admitted on 09/16/19 for weakness, SOB, confusion. Chief Complaint: [] Date of admission: 09/16/19 15:05 Discharge date: 09/19/19 Primary care physician: Maximiliano Brown Consults: 09/17/19 08:10 Consult to Physician [CONS] Routine Comment: Consulting Provider: Pavan Fernando Reason For Exam: Physician to Consult Medical - DS: Meds - Discharge Medications Prescriptions: Ipratropium/Albuterol Sulfate [Combivent] 2 puff INH QID #30 inhaler Prescription Printed Warfarin [Coumadin] 5 mg PO DAILY #14 tab Prescription Printed predniSONE [Deltasone] 20 mg PO DAILY #10 tab Prescription Printed Nicotine [Nicoderm] 21 mg TD DAILY #7 patch Prescription Printed Metoprolol Succinate [Toprol Xl] 50 mg PO QDAY #30 tab.xl.24h Prescription Printed Active and Home Medications: Home Medications levothyroxine 75 mcg tablet 75 mcg PO QAM tab 06/18/19 [History Confirmed 09/16/19 Last Taken 09/15/19] lisinopril 10 mg tablet 10 mg PO QAM tab 06/18/19 [History Confirmed 09/16/19 Last Taken 09/15/19] potassium chloride 10 mEq tablet,extended release(part/cryst) 10 meq PO QDAY 06/18/19 [History Confirmed 09/16/19 Last Taken 09/15/19] Apixaban [Eliquis] 2.5 mg PO BID #60 tab 09/19/19 [Rx Last Taken Unknown] Ipratropium/Albuterol Sulfate [Combivent] 2 puff INH QID #30 inhaler 09/19/19 [Rx Last Taken Unknown] Metoprolol Succinate [Toprol Xl] 50 mg PO QDAY #30 tab.xl.24h 09/19/19 [Rx Last Taken Unknown] Medical - DS: Hosp Hospital Course: Discharge diagnosis * A. fib RVR-now rate controlled on increased dose of metoprolol 50. Discussed anticoagulation and patient agrees to start coumadin for CVA prophylaxis. Continue Coumadin dosing based on INR. Echo reveals severe MS precludes use of newer generation anticoagulants * COPD exacerbation-continue oral steroids for 5 days/bronchodilators/supplemental oxygen. Smoking cessation counseling * Poorly controlled hypertension diastolic CHF-clinically improved with increas ed dose of metoprolol. Systolics around 120. Continue SONIDO inhibitor * Euvolemic hyponatremia consistent with SIADH with increased urine osmolality- resolved, sodium 136 * Acute change in mental status secondary to hyponatremia. Resolved and now at baseline * Severe deconditioning/weakness with self-care deficit and protein calorie malnutrition. BMI 17.8 . Dietitian consulted/initiate protein calorie supplements * Severe pulmonary hypertension pulmonary artery pressures have more than 70- right ventricular overload with lymphedema. Outpatient cardiology follow-up * Hypothyroidism continue thyroxine * Tobacco dependence-nicotine patch, counseled for tobacco cessation Brief hospital course Mr. Parks is a 84 year old M with a known history of hypertension/coronary disease with CABG/aortofemoral bypass was a chain smoker and lives independently in an apartment complex. His daughter Carmen lives in the same apartment complex and keeps an eye on him. Patient has been independent and usually ambulates with a wheelchair. Over the last few weeks he has had progressive decline in functionality with increasing confusion weakness and loss of appetite. His BMI on presentation 17.8 down to skin and bones. He also has gotten progressively confused and was discovered by his daughter in a days. He was brought in for further evaluation due to increasing shortness of breath along with orthopnea. Patient denies recent sick contacts or changes in medication. He endorses to bilateral lower extremity swelling but denies diarrhea, dysuria, fever, rash shaking chills. He endorses to productive sputum but denies headache, glandular swelling, skin rash. Initial work-up in the ER was consistent with COPD exacerbation/sodium at 126 and severely deconditioned with a BMI of 17.8. Hospitalist service was consulted for admission in light of above At the time of evaluation patient is accompanied with his daughter Carmen. He was able to answer some of the questions. He is more lucid and aware of surroundings person and time and place. He denies active distress or symptoms. 09/17-patient doing well. Sodium at 132. 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 Dietitian consult for aggressive protein calorie supplements/monitoring for refeeding syndrome. Continue with aggressive R replacement/multivitamins. Patient unwilling to stay any longer. However extremely deconditioned and will require SNF placement due to self-care deficits. Improved work of breathing. Sodium up to 132. Smoking cessation counseling performed. On nicotine patch. New onset 2:1 atrial flutter.. Started on diltiazem. Fluid restriction to 1500 cc a day/regular diet 09/18-recurrent A. fib with RVR. Status post IV metoprolol. Heart rate improved to 78. Ongoing physical therapy. Appears short of breath. On 2 L oxygen. Systolics around 170. Increase lisinopril to 20/metoprolol to 50 daily. Continue monitoring. PT OT. Nutrition support. Sodium 133, total pro tein improved to 5.9.Continue PT OT eval and treatments. Case management to coordinate SNF transfer once ready for discharge 09/19-patient discharging to SNF. Continue warfarin for stroke prophylaxis. Increased metoprolol dose to 50,now rate controlled. Continue steroids and bronchodilators for COPD. Maintain smoking cessation. Continue high-protein Calorie supplements. Detailed discharge instruction as below Discharge diagnosis: . - Time Spent with Patient Total time spent providing and/or coordinating discharge services: Greater than 30 minutes Medical - DS: Exam - Constitutional Vitals: Vital Signs Temp Pulse Pulse Resp BP BP Pulse Ox 09/19/19 09:46 100 H 24 H 94 09/19/19 08:00 99.0 F 100 H 24 H 123/75 94 09/19/19 03:33 98.3 F 99 H 24 H 126/77 94 09/18/19 23:26 98.8 F 74 24 H 115/69 96 09/18/19 19:28 99.0 F 74 24 H 107/68 97 09/18/19 16:00 98.3 F 98 H 20 121/60 95 09/18/19 11:28 97.8 F 100 H 30 H 146/63 97 Intake and Output 09/18/19 09/19/19 09/19/19 21:59 05:59 13:59 Intake Total 120 220 120 Output Total 1 2 Balance 119 218 120 Intake: Oral 120 220 120 Output: # of times incontinent of urine 1 2 Other: Meal Dinner Breakfast Percent of Meal Consumed Refused 25% Feeding Ability Assist with Tray Set Up Weight 108 lb 8 oz 108 lb 8 oz Patient Weight 09/20/19 05:59 Weight 108 lb 8 oz Medical - DS: Data Labs on day of discharge: Labs from last 24 hours 09/19/19 09/19/19 04:27 04:27 WBC 11.5 H RBC 3.51 L Hgb 11.6 L Hct 32.9 L MCV 93.8 MCH 32.9 MCHC 35.1 RDW 12.2 Plt Count 352 MPV 7.8 Total Counted 100 Seg Neutrophils % 79 H Band Neutrophils % 1 Lymphocytes % 5 L Monocytes % (Manual) 15 H Platelet Estimate Normal RBC Morphology Normal Sodium 136 Potassium 4.6 Chloride 99 Carbon Dioxide 26 Anion Gap 11.0 BUN 16 Creatinine 0.9 GFR Calculation 78 Glucose 110 H Uric Acid 3.6 Calcium 8.7 Phosphorus 3.9 Magnesium 1.9 Total Bilirubin 0.8 Direct Bilirubin 0.3 GGT 33 AST 15 ALT 10 Alkaline Phosphatase 59 Lactate Dehydrogenase 155 Total Protein 5.4 L Albumin 3.2 Globulin 2.2 Albumin/Globulin Ratio 1.5 Triglycerides 35 Medical - DS: A/P - Patient/Caregiver Discharge Instructions Activity: as per physical therapy, increase activity as tolerated Diet: Regular Diet Additional Instructions: Discharge Instructions: Continue aggressive PT OT Nutrition supplements protein calorie malnutrition, dietitian and ST consults. Give Magic cups, 4 oz BID and Ensure Enlive 4 oz TID. Continue warfarin for CVA prophylaxis Continue metoprolol 50/lisinopril 10 and uptitrate for hypertension per patient PCP Outpatient cardiology follow-up for severe pulmonary hypertension-preferably in 1 to 2 weeks. Please call and scheudule this. Outpatient PCP follow-up in 1 to 2 weeks, please call and schedule this. Continue steroids and bronchodilators as ordered Maintain smoking cessation Limb elevation/lymphedema treatments. Prescriptions: Ipratropium/Albuterol Sulfate [Combivent] 2 puff INH QID #30 inhaler Prescription Printed Warfarin [Coumadin] 5 mg PO DAILY #14 tab Prescription Printed predniSONE [Deltasone] 20 mg PO DAILY #10 tab Prescription Printed Nicotine [Nicoderm] 21 mg TD DAILY #7 patch Prescription Printed Metoprolol Succinate [Toprol Xl] 50 mg PO QDAY #30 tab.xl.24h Prescription Printed Other Amb Orders: OT Discharge Order Location: None Selected Physical Therapy at Discharge - General Location: None Selected Prothrombin Time INR Location: None Selected - Problem Maintenance (1) Hyponatremia with excess extracellular fluid volume Status: Acute - Follow up Plan Follow up with: Maximiliano Brown MD [Primary Care Provider] - (Please call and scheduled h ospital follow up.) Patel Keating DPM [Physician] - (follow up with certified optician after discharge for nail trimming and foot/ shoe evaluation) Disposition: Xfer SNF Care Plan Goals: This discharge packet is provided to you to help keep you informed about your care. We want to ensure you get everything you need when you go home. You will also be receiving a call from us in a few days to follow up with you and see how you are doing since your discharge. This gives us a chance to listen to any concerns you maybe experiencing since you were discharged or any additional needs you may have, as well as providing us feedback on your care experience. We strive to always provide excellent care and thank you for your feedback and for choosing [facility]. Prognosis: Fair Rehab Potential: Fair I certify that the patient requires SNF services: Yes Overall status at discharge: patient is progressing back to baseline Medical - DS: Qual - VTE Deep Vein Thrombosis/Pulmonary Embolism Present on Admission: No
[2019-09-19] MEDS: NICOTINE 21 MG PATCH TOPICAL SCH (12:03)
== END 2019-09-19 12:10 | DRG 191 ==
LOC: ED 09:37 → MEDSUR 15:05
PROVIDERS: ADMIT Internal Medicine; ATTEND Internal Medicine

== ENCOUNTER 2019-12-08 10:52 | Inpatient (IN) ==
[2019-12-08] MEDS ORDERED: ASPIRIN 81 MG TAB.CHEW CHEWED ONE (11:32)
[2019-12-08] MEDS ORDERED: DIGOXIN 500 MCG/2 ML AMPUL IV ONE (11:34)
[2019-12-08] MEDS ORDERED: methylPREDNISolone SOD SUCC 125 MG/2 ML VIAL IV ONE (11:35)
--- NOTE | 2019-12-08 11:38 | Emergency Department Note ---
SOB HPI - General Chief Complaint: Shortness of Breath/Dyspnea Stated Complaint: SOB Time Seen by Provider: 12/08/19 11:25 Source: patient, family Mode of arrival: ambulatory Limitations: no limitations - History of Present Illness 84-year-old is brought in by private vehicle with history of shortness of breath, progressive for the last 2 days. Notably, is very tachycardic on arrival, he is status post CABG in the past, smoker, usually one half to one pack a day but he quit 2 days ago. No chills, he has had a slight cough but not productive. He is audibly wheezy on arrival MD Complaint: shortness of breath - Related Data Home Medications Medication Instructions Recorded Confirmed levothyroxine 75 mcg tablet 75 mcg PO QAM tab 06/18/19 12/08/19 lisinopril 10 mg tablet 10 mg PO QAM tab 06/18/19 12/08/19 potassium chloride 10 mEq 10 meq PO QDAY 06/18/19 12/08/19 tablet,extended release(part/cryst) Metoprolol Succinate [Toprol Xl] 25 mg PO QDAY 12/08/19 12/08/19 Allergies Allergy/AdvReac Type Severity Reaction Status Date / Time No Known Drug Allergies Allergy Verified 12/08/19 10:59 Review of Systems All systems ED: reviewed and negative except as stated. Constitutional: Denies: fever, chills Cardiovascular: Reports: palpitations, dyspnea on exertion. Denies: chest pain Respiratory: Reports: shortness of breath, wheezes. Denies: cough Gastrointestinal: Denies: abdominal pain, nausea Genitourinary: Denies: dysuria Past Medical History - Past Medical History Medical history: Reports: CAD (coronary artery disease), COPD, other (History of bigeminy) Surgical history ED: Reports: coronary bypass (CABG) Family history: Reports: non-contributory - Social History smoking status: Former smoker Alcohol use: Reports: None Drug use: Reports: none Physical Exam Limitations: no limitations General appearance: alert, in distress, nontoxic Head: atraumatic, normocephalic, normal inspection Eye: Present: normal appearance, PERRL. Absent: EOMI ENT: Present: normal exam, mucous membranes moist, normal external ear exam, other (hearing aids) Neck: Present: normal inspection, full ROM. Absent: tenderness, meningismus Chest: Present: normal inspection, symmetric chest wall rise Respiratory: Present: respiratory distress, wheezes, accessory muscle use, prolonged expiratory phase, decreased breath sounds Cardiovascular: Present: regular rate, tachycardia, normal heart sounds Abdominal: Present: soft. Absent: distention, tenderness, guarding Extremities: Present: normal inspection. Absent: tenderness, pedal edema Back: Absent: CVA tenderness (R), CVA tenderness (L), vertebral tenderness Neurological: Present: alert, oriented X3 Psychiatric: Present: normal affect Skin: Present: warm, dry, cyanosis Course - Reevaluation(s) Reevaluation #1: Patient given breathing treatments, Solu-Medrol, digoxin to slow his rate down. Vital Signs Temperature 97.7 F 12/08/19 10:59 Pulse Rate 111 H 12/08/19 10:59 Respiratory Rate 22 12/08/19 10:59 Blood Pressure 155/72 12/08/19 10:59 Pulse Oximetry (%) 90 12/08/19 10:59 Temperature 97.7 F 12/08/19 15:46 Pulse Rate 44 L 12/08/19 15:46 Respiratory Rate 23 H 12/08/19 15:46 Blood Pressure 158/75 12/08/19 15:46 Pulse Oximetry (%) 91 12/08/19 15:46 Shortness of Breath/Dyspnea - MDM Narrative Medical decision making narrative: Patient was given a breathing treatment, started on Solu-Medrol. Digoxin to slow his rate, now is showing ventricular bigeminy at times. He does have atrial fibrillation, new onset, associated with RVR, history of CABG, history of coronary artery disease, history of COPD. At this point, I believe he has COPD exacerbation, new onset atrial fibrillation. He should probably be monitored for 24 hours. Initial treatments, started in the ED it. At this point. Discussed symptoms and labs with the hospitalist. The. Patient will be admitted to the hospital for COPD exacerbation, also atrial fibrillation, new onset. - Lab Data Lab results reviewed: Yes I reviewed the patient's lab results. Result diagrams: 12/08/19 11:37 12/08/19 11:37 Lab Results 12/08/19 12/08/19 12/08/19 Range/Units 11:37 11:37 11:37 WBC 9.7 (4.50-11.00) K/mcL RBC 4.48 L (4.63-6.08) M/mcL Hgb 14.2 (13.7-17.5) g/dL Hct 43.2 (40.1-51.0) % MCV 96.4 (80.0-100.0) fL MCH 31.7 (26.0-34.0) pg MCHC 32.9 (31.0-36.0) g/dL RDW 13.1 (11.5-14.5) % Plt Count 382 (140-440) K/mcL MPV 9.4 (7.4-10.4) fL Gran % 72.5 (38.0-78.0) % Lymph % (Auto) 12.4 L (15.5-49.0) % [place] % (Auto) 14.6 H (1.0-12.0) % Eos % (Auto) 0.1 (0.0-7.0) % Baso % (Auto) 0.4 (0.0-2.0) % Gran # 7.06 (1.80-8.00) K/mcL Lymph # (Auto) 1.21 L (1.50-4.80) K/mcL [place] # (Auto) 1.42 H (0.10-0.90) K/mcL Eos # (Auto) 0.01 (0.00-0.70) K/mcL Baso # (Auto) 0.04 (0.00-0.30) K/mcL Sodium 130 L (133-145) mmol/L Potassium 5.5 H (3.3-5.1) mmol/L Chloride 93 L (96-108) mmol/L Carbon Dioxide 26 (22-30) mmol/L Anion Gap 11.0 (8-16) BUN 17 (8-23) mg/dl Creatinine 1.2 (0.7-1.2) mg/dl GFR Calculation 55 Glucose 129 H (70-105) mg/dL Osmolality (280-300) mOSM/kg Calcium 9.7 (8.6-10.4) mg/dl Magnesium (1.6-2.5) mg/dL Total Bilirubin 0.5 (0.0-1.0) mg/dL AST 20 (0-37) U/l ALT 11 (0-40) U/l Alkaline Phosphatase 95 (39-117) U/L Troponin T < 0.01 (0-0.03) ng/ml NT-Pro-B Natriuret Pep 2983.0 H (0-450) pg/ml Total Protein 7.1 (5.9-8.4) gm/dL Albumin 4.3 (3.2-5.2) gm/dL Globulin 2.8 (2.2-3.7) gm/dL Albumin/Globulin Ratio 1.5 (1.0-2.3) Triglycerides (<150) mg/dl Cholesterol (<200) mg/dl LDL Cholesterol, Calc (SEE CHART) mg/dl Non-HDL Cholesterol (LDL TARGET+30) HDL Cholesterol (>40) mg/dl TSH (0.27-5.01) uIU/ml 12/08/19 12/08/19 12/08/19 Range/Units 11:37 11:37 11:37 WBC (4.50-11.00) K/mcL RBC (4.63-6.08) M/mcL Hgb (13.7-17.5) g/dL Hct (40.1-51.0) % MCV (80.0-100.0) fL MCH (26.0-34.0) pg MCHC (31.0-36.0) g/dL RDW (11.5-14.5) % Plt Count (140-440) K/mcL MPV (7.4-10.4) fL Gran % (38.0-78.0) % Lymph % (Auto) (15.5-49.0) % [place] % (Auto) (1.0-12.0) % Eos % (Auto) (0.0-7.0) % Baso % (Auto) (0.0-2.0) % Gran # (1.80-8.00) K/mcL Lymph # (Auto) (1.50-4.80) K/mcL [place] # (Auto) (0.10-0.90) K/mcL Eos # (Auto) (0.00-0.70) K/mcL Baso # (Auto) (0.00-0.30) K/mcL Sodium (133-145) mmol/L Potassium (3.3-5.1) mmol/L Chloride (96-108) mmol/L Carbon Dioxide (22-30) mmol/L Anion Gap (8-16) BUN (8-23) mg/dl Creatinine (0.7-1.2) mg/dl GFR Calculation Glucose (70-105) mg/dL Osmolality 287 (280-300) mOSM/kg Calcium (8.6-10.4) mg/dl Magnesium 2.3 (1.6-2.5) mg/dL Total Bilirubin (0.0-1.0) mg/dL AST (0-37) U/l ALT (0-40) U/l Alkaline Phosphatase (39-117) U/L Troponin T (0-0.03) ng/ml NT-Pro-B Natriuret Pep (0-450) pg/ml Total Protein (5.9-8.4) gm/dL Albumin (3.2-5.2) gm/dL Globulin (2.2-3.7) gm/dL Albumin/Globulin Ratio (1.0-2.3) Triglycerides 65 (<150) mg/dl Cholesterol 183 (<200) mg/dl LDL Cholesterol, Calc 117 H (SEE CHART) mg/dl Non-HDL Cholesterol 129 (LDL TARGET+30) HDL Cholesterol 54 (>40) mg/dl TSH 0.29 (0.27-5.01) uIU/ml - Radiology Data Radiology results reviewed: Yes I reviewed the patient's radiology results. Disposition Pt seen by MAILER APPRENTICE/PA only: No Clinical Impression: Acute exacerbation of chronic obstructive airways disease, Atrial fibrillation, new onset Disposition: Xfer As Inpt ([facility]) Condition: Fair
[2019-12-08] MEDS ORDERED: IPRATROPIUM/ALBUTEROL 3 ML AMPUL.NEB NEB ONE (11:44)
--- NOTE | 2019-12-08 11:48 | XRay Report ---
CLINICAL INFORMATION: Chest Pain COMPARISON: 09/16/2019 FINDINGS: Heart size, mediastinum and pulmonary vessels are normal. Chronic bronchitis noted. Scattered scarring appreciated but no infiltrates or effusions. IMPRESSION: Chronic bronchitis. No acute disease Interpreted and Authenticated by: Saúl Renteria 12/08/19
[2019-12-08] MEDS ORDERED: IPRATROPIUM/ALBUTEROL 3 ML AMPUL.NEB NEB SCH (12:00)
[2019-12-08 12:11] LABS: Basophils # (Auto) 0.04 K/mcL (0.00-0.30); Basophils % (Auto) 0.4 % (0.0-2.0); Eosinophils # (Auto) 0.01 K/mcL (0.00-0.70); Eosinophils % (Auto) 0.1 % (0.0-7.0); Granulocytes % (Auto) 72.5 % (38.0-78.0); Hematocrit 43.2 % (40.1-51.0); Hemoglobin 14.2 g/dL (13.7-17.5); Lymphocytes # (Auto) 1.21 K/mcL (1.50-4.80); Lymphocytes % (Auto) 12.4 % (15.5-49.0); Mean Cell Volume 96.4 fL (80.0-100.0); Mean Corpuscular HGB Conc 32.9 g/dL (31.0-36.0); Mean Platelet Volume 9.4 fL (7.4-10.4); Monocytes # (Auto) 1.42 K/mcL (0.10-0.90); Monocytes % (Auto) 14.6 % (1.0-12.0); Platelet Count 382 K/mcL (140-440); RBC 4.48 M/mcL (4.63-6.08); Red Cell Distribution Width 13.1 % (11.5-14.5); WBC 9.7 K/mcL (4.50-11.00)
[2019-12-08 12:34] LABS: ALT/SGPT 11 U/l (0-40); AST/SGOT 20 U/l (0-37); Albumin 4.3 gm/dL (3.2-5.2); Albumin/Globulin Ratio 1.5 (1.0-2.3); Alkaline Phosphatase 95 U/L (39-117); Bilirubin,Total 0.5 mg/dL (0.0-1.0); Blood Urea Nitrogen 17 mg/dl (8-23); Calcium 9.7 mg/dl (8.6-10.4); Carbon Dioxide 26 mmol/L (22-30); Globulin 2.8 gm/dL (2.2-3.7); Glomerular Filtration Rate 55; Glucose 129 mg/dL (70-105)
[2019-12-08 12:35] LABS: Chloride 93 mmol/L (96-108)
--- NOTE | 2019-12-08 14:10 | Internal Med History&Physical ---
Medical - H&P: [facility] Patient information: Note initiated : 12/08/19 at 2:07 pm Service Date, if different from initiated Date: [] Patient: Lincoln Parks 84 y/o M admitted on for Shortness of breath. Chief Complaint: [] History of present illness: Mr. Parks is a 84 year old M Presents the ED with shortness of breath progressing for 2 days. He is accompanied by his daughter EASTON. Is tachycardic on arrival, only recorded heart rate reads highest 111. He was found to be in A. fib RVR. Old notes he was in A. fib RVR when he was hospitalized with COPD in August. Chronic cough he does not feel it is nicely changed. Feels wheezy. He was started on apixaban last hospitalization but I do not see it on his home medications. He is on metoprolol. He is also found to be hyperkalemic at 5.5. He is on an SONIDO inhibitor and potassium supplements. He received several breathing treatments in the ED with improvement. 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 Denies chest pain. He was also hypertensive in the ED. Patient states he is run out of his inhaler. Review of Systems: Pertinent positives as above. Denies headache/fever/chills/nausea/vomi ting/chest or abdominal pain/diarrhea. Remaining 10 point review of system reviewed negative Medical - H&P: [facility] Medical history: Medical History (Last Reviewed 11/13/19 @ 12:06 by Maximiliano Brown MD) Pneumonia (Chronic ~07/2004) Low back pain syndrome (Chronic) Urinary urgency (Chronic) PVD (peripheral vascular disease) (Chronic) Right carotid bruit (Chronic) Hypothyroidism (Chronic) CAD (coronary artery disease) (Chronic) Hyperlipidemia (Chronic) Hypertension (Chronic) Postural hypotension (Chronic) Impacted cerumen, bilateral (Chronic) FH: stroke (Chronic) Encounter for long-term (current) use of medications (Chronic) Anxiety (Chronic) Encounter for smoking cessation counseling (Chronic) Past Surgical History (Last Reviewed 11/13/19 @ 12:06 by Maximiliano Brown MD) History of colonoscopy (Chronic ~2006) History of prostatectomy (Chronic ~2001) History of carotid endarterectomy (Chronic) History of aorto-femoral bypass (Chronic) History of coronary artery bypass graft (Chronic ~08/2001) Family History (Last Reviewed 11/13/19 @ 12:06 by Maximiliano Brown MD) Mother Stroke Asthma Father Heart disease Social History (Last Updated 11/13/19 @ 12:10 by Maximiliano Brown MD) Patient smokes 1 to 2 packs/day, quit 2 days ago Has 2-3 beers a week Ambulates with a cane and when he is outside the house typically uses electric wheelchair Lives by himself but his daughter who is his POA lives in the same apartment complex Medical - H&P: Meds Home Medications Medication Instructions Recorded Confirmed Type levothyroxine 75 mcg tablet 75 mcg PO QAM tab 06/18/19 12/08/19 History lisinopril 10 mg tablet 10 mg PO QAM tab 06/18/19 12/08/19 History potassium chloride 10 mEq 10 meq PO QDAY 06/18/19 12/08/19 History tablet,extended release(part/cryst) Metoprolol Succinate [Toprol Xl] 25 mg PO QDAY 12/08/19 12/08/19 History Allergies Allergy/AdvReac Type Severity Reaction Status Date / Time No Known Drug Allergies Allergy Verified 12/08/19 10:59 Medical - H&P: Exam - Constitutional Vitals: Temp Pulse Resp BP Pulse Ox 97.7 F 51 L 22 193/74 90 12/08/19 10:59 12/08/19 13:14 12/08/19 13:14 12/08/19 12:42 12/08/19 13:14 Exam: General: Alert, Awake, No acute Distress Eyes/N/T: EOMI, PERRL, dMM Head/Neck: neck supple, normocephalic atraumatic CV: irreg, No murmurs, normal s1/s2 Pulm:b/l wheezing, no rales, prolonged exp phase Abd: soft, nontender, +BS x4 Ext: no clubbing/cyanosis, 1+ b/l LE edema chronic Neuro: Alert, no focal deficits, moves all extremities, CN 2-12 grossly intact, symmetrical strength b/l upper/lower, sensations intact b/l upper/lower Skin: warm/dry Medical - H&P: Reslt - Labs CBC & Chem 7: 02/08/20 11:37 12/08/19 11:37 Labs: Short CBC 12/08/19 Range/Units 11:37 WBC 9.7 (4.50-11.00) K/mcL Hgb 14.2 (13.7-17.5) g/dL Hct 43.2 (40.1-51.0) % Plt Count 382 (140-440) K/mcL BMP 12/08/19 11:37 Sodium 130 L Potassium 5.5 H Chloride 93 L Carbon Dioxide 26 BUN 17 Creatinine 1.2 Glucose 129 H Calcium 9.7 Cardiac Enzymes 12/08/19 Range/Units 11:37 Troponin T < 0.01 (0-0.03) ng/ml Liver Function 12/08/19 Range/Units 11:37 Total Bilirubin 0.5 (0.0-1.0) mg/dL AST 20 (0-37) U/l ALT 11 (0-40) U/l Alkaline Phosphatase 95 (39-117) U/L Albumin 4.3 (3.2-5.2) gm/dL Medical - H&P: A/P - Narrative A/P Narrative: A: *AECOPD(not on home O2): ran out of IH's - *PAF/flutter mild RVR, not new: -CHADSVASC=4 *Hyponatremia, 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: *Hyperkalemia: 2/2 ACEI and KCl supp *Severe protein calorie malnutrition: *Severe deconditioning/debility: Essentially wheelchair bound outside of the house otherwise uses a cane *CAD w/CABG: do not see ASA/statin on home med list *h/o diastolic CHF and RV systolic HF: *Severe Pulm HTN: *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
[2019-12-08 15:14] LABS: HDL Cholesterol 54 mg/dl (>40); LDL Cholesterol,Calculated 117 mg/dl (SEE CHART); Non-HDL Cholesterol 129 (LDL TARGET+30); Triglycerides 65 mg/dl (<150)
[2019-12-08 15:25] LABS: Thyroid Stimulating Hormone 0.29 uIU/ml (0.27-5.01)
[2019-12-08] MEDS ORDERED: ONDANSETRON 4 MG/2 ML VIAL IV PRN (15:37)
[2019-12-08] MEDS ORDERED: METOPROLOL TARTRATE 5 MG/5 ML VIAL IV PRN (15:37)
[2019-12-08] MEDS ORDERED: POLYETHYLENE GLYCOL 3350 17 GM PACKET PO PRN (15:37)
[2019-12-08] MEDS ORDERED: IPRATROPIUM/ALBUTEROL 3 ML AMPUL.NEB NEB PRN (15:37)
[2019-12-08] MEDS ORDERED: POTASSIUM CHLORIDE 20 MEQ TABLET PO PRN ×2 (15:37)
[2019-12-08] MEDS ORDERED: MAGNESIUM SULFATE 2 GM/50 ML BAG IV PRN (15:37)
[2019-12-08] MEDS ORDERED: POTASSIUM CHLORIDE 40 MEQ in DEXTROSE 5% IN WATER 500 ML IV PRN (15:37)
[2019-12-08] MEDS ORDERED: SENNOSIDES 1 TABLET PO PRN (15:37)
[2019-12-08] MEDS ORDERED: 0.9 % SODIUM CHLORIDE 250 ML IV ONE (15:37)
[2019-12-08] MEDS ORDERED: LABETALOL 5 MG/ML ML IV PRN (15:37)
[2019-12-08] MEDS ORDERED: ACETAMINOPHEN 325 MG TABLET PO PRN (15:37)
[2019-12-08] MEDS: IPRATROPIUM/ALBUTEROL 3 ML AMPUL.NEB NEB SCH ×2 (15:56→23:05)
[2019-12-08] MEDS: 0.9 % SODIUM CHLORIDE 10 ML SYRINGE IV SCH ×2 (17:22→20:14)
[2019-12-08 18:56] LABS: Blood Urea Nitrogen 20 mg/dl (8-23); Calcium 8.9 mg/dl (8.6-10.4); Carbon Dioxide 25 mmol/L (22-30); Glomerular Filtration Rate 61; Glucose 190 mg/dL (70-105)
[2019-12-08 19:15] LABS: Chloride 93 mmol/L (96-108)
[2019-12-08] MEDS ORDERED: DEXTROSE 31 GM ORAL.SUSP PO PRN (19:39)
[2019-12-08] MEDS ORDERED: DEXTROSE 50% 50 ML VIAL IV PRN (19:39)
[2019-12-08] MEDS ORDERED: cloNIDine HCL 0.1 MG TABLET PO PRN (19:39)
[2019-12-08] MEDS: methylPREDNISolone SOD SUCC 40 MG/ML VIAL IV SCH (20:13)
[2019-12-08] MEDS: FLUTICASONE/SALMETEROL 250/50 INHALER #14 INH SCH (20:13)
[2019-12-08] MEDS: APIXABAN 2.5 MG TABLET PO SCH (20:13)
[2019-12-08] MEDS: ATORVASTATIN 20 MG TABLET PO SCH (20:14)
[2019-12-08] MEDS: INSULIN LISPRO 1 UNIT/0.01 ML UNIT SQ SCH (20:26)
[2019-12-08] MEDS ORDERED: ATORVASTATIN 20 MG TABLET PO SCH (21:00)
[2019-12-09 00:13] LABS: Appearance,Urine CLEAR; Bilirubin,Urine NEG (NEG); Color,Urine YELLOW; Glucose,Urine (UA) NEGATIVE (NEG); Ketones,Urine NEG (NEG); Leukocyte Esterase,Urine NEG /uL (NEG); Nitrate,Urine NEG (NEG); Protein,Urine NEG (NEG); Specific Gravity,Urine 1.024 (1.000-1.035); Urine Blood NEG mg/dL (<0.03); Urobilinogen,Urine NEG (NEG)
[2019-12-09 00:32] LABS: Osmolality,Urine 755 mOsm/kg (80-1000)
[2019-12-09 00:47] LABS: Sodium, Urine Random < 20 mmol/L
[2019-12-09] MEDS: 0.9 % SODIUM CHLORIDE 10 ML SYRINGE IV SCH ×3 (05:40→20:27)
[2019-12-09 07:08] LABS: Basophils # (Auto) 0 K/mcL (0.00-0.30); Basophils % (Auto) 0 % (0.0-2.0); Eosinophils # (Auto) 0 K/mcL (0.00-0.70); Eosinophils % (Auto) 0 % (0.0-7.0); Granulocytes % (Auto) 86.7 % (38.0-78.0); Hematocrit 35.7 % (40.1-51.0); Hemoglobin 11.8 g/dL (13.7-17.5); Lymphocytes # (Auto) 0.86 K/mcL (1.50-4.80); Lymphocytes % (Auto) 8.2 % (15.5-49.0); Mean Cell Volume 95.5 fL (80.0-100.0); Mean Corpuscular HGB Conc 33.1 g/dL (31.0-36.0); Mean Platelet Volume 9.6 fL (7.4-10.4); Monocytes # (Auto) 0.53 K/mcL (0.10-0.90); Monocytes % (Auto) 5.1 % (1.0-12.0); Platelet Count 360 K/mcL (140-440); RBC 3.74 M/mcL (4.63-6.08); Red Cell Distribution Width 13.1 % (11.5-14.5); WBC 10.5 K/mcL (4.50-11.00)
[2019-12-09] MEDS: IPRATROPIUM/ALBUTEROL 3 ML AMPUL.NEB NEB SCH ×3 (07:32→22:48)
[2019-12-09 07:51] LABS: ALT/SGPT 6 U/l (0-40); AST/SGOT 14 U/l (0-37); Albumin 3.3 gm/dL (3.2-5.2); Alkaline Phosphatase 70 U/L (39-117); Bilirubin,Direct < 0.2 mg/dL (0.0-0.3); Bilirubin,Total 0.4 mg/dL (0.0-1.0); Blood Urea Nitrogen 21 mg/dl (8-23); Calcium 8.9 mg/dl (8.6-10.4); Carbon Dioxide 24 mmol/L (22-30); Chloride 97 mmol/L (96-108); Glomerular Filtration Rate 68; Glucose 130 mg/dL (70-105); Lactate Dehydrogenase 229 U/L (94-250); Phosphorous 4.3 mg/dL (2.7-4.5); Triglycerides 48 mg/dl (<150); Uric Acid 6.3 mg/dL (2.5-8.0)
[2019-12-09] MEDS: FLUTICASONE/SALMETEROL 250/50 INHALER #14 INH SCH ×2 (07:52→20:09)
[2019-12-09] MEDS: INSULIN LISPRO 1 UNIT/0.01 ML UNIT SQ SCH ×4 (08:12→20:25)
[2019-12-09] MEDS ORDERED: 0.9 % SODIUM CHLORIDE 500 ML IV ONE (08:17)
--- NOTE | 2019-12-09 08:18 | Internal Med Progress Note ---
Medical - PN: Subj Patient information: Note initiated : 12/09/19 at 8:15 am Service Date, if different from initiated Date: [] Patient: Lincoln Parks 84 y/o M admitted on 12/08/19 for Shortness of breath. Chief Complaint: [] Interval history: Mr. Parks is a 84 year old M Presents the ED with shortness of breath progressing for 2 days. He is accompanied by his daughter EASTON. Is tachycardic on arrival, only recorded heart rate reads highest 111. He was found to be in A. fib RVR. Old notes he was in A. fib RVR when he was hospitalized with COPD in August. Chronic cough he does not feel it is nicely changed. Feels wheezy. He was started on apixaban last hospitalization but I do not see it on his home medications. He is on metoprolol. He is also found to be hyperkalemic at 5.5. He is on an SONIDO inhibitor and potassium supplements. He received several breathing treatments in the ED with improvement. 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 Denies chest pain. He was also hypertensive in the ED. Patient states he is run out of his inhaler. 12/09 Is feeling better. He has continued cough. Shortness of breath improving. Poor sleep but otherwise no new complaints. Heart rate controlled. Review of Systems: denies headache/fever/chills/nausea/vomiting/chest or abdominal pain/diarrhea. Otherwise see above. - Constitutional Vitals: Vital Signs Temp Pulse Resp BP Pulse Ox 98.1 F 73 13 125/63 91 12/09/19 04:01 12/09/19 07:32 12/09/19 07:32 12/09/19 04:01 12/09/19 04:04 Period Temp Pulse Resp BP Sys/Ortiz Pulse Ox Last 24 Hr 97.5 F-98.7 F 37-111 12-29 124-193/44-93 89-100 Intake and Output 12/08/19 12/09/19 12/09/19 21:59 05:59 13:59 Intake Total 240 420 Output Total 31 31 Balance 209 389 Weight 44.089 kg Intake & Output: Intake & Output 12/08/19 12/09/19 12/09/19 21:59 05:59 13:59 Intake Total 240 420 Output Total 31 31 Balance 209 389 Weight 44.089 kg Intake: Oral 240 180 GI Tube Flush 240 Output: Void Amount 30 30 # of times incontinent of urine 1 1 Other: Meal Dinner Percent of Meal Consumed 50% Feeding Ability Assist with Tray Set Up Urine Appearance Clear Clear Urine Color Dark Yellow Dark Yellow # Bowel Movements 0 Exam: General: Alert, Awake, No acute Distress Eyes/N/T: EOMI, Head/Neck: neck supple, CV: irreg, No murmurs, Pulm: b/l wheezing mild and improving, no rales, prolonged exp phase Abd: soft, nontender, +BS x4 Ext: no clubbing/cyanosis, mild b/l LE edema chronic Neuro: Alert, no focal deficits, moves all extremities, Skin: warm/dry Medical - PN: Obj Da - Labs CBC & Chem 7: 12/09/19 05:00 12/09/19 05:00 Labs: Abnormal Lab Results 12/09/19 12/09/19 12/08/19 05:00 05:00 18:00 RBC 3.74 L Hgb 11.8 L Hct 35.7 L Gran % 86.7 H Lymph % (Auto) 8.2 L [place] % (Auto) Gran # 9.09 H Lymph # (Auto) 0.86 L [place] # (Auto) Sodium 131 L Potassium Chloride 93 L Glucose 130 H 190 H NT-Pro-B Natriuret Pep LDL Cholesterol, Calc Cortisol AM Sample 12/08/19 12/08/19 12/08/19 11:37 11:37 11:37 RBC Hgb Hct Gran % Lymph % (Auto) [place] % (Auto) Gran # Lymph # (Auto) [place] # (Auto) Sodium 130 L Potassium 5.5 H Chloride 93 L Glucose 129 H NT-Pro-B Natriuret Pep 2983.0 H LDL Cholesterol, Calc 117 H Cortisol AM Sample 31.5 H 12/08/19 11:37 RBC 4.48 L Hgb Hct Gran % Lymph % (Auto) 12.4 L [place] % (Auto) 14.6 H Gran # Lymph # (Auto) 1.21 L [place] # (Auto) 1.42 H Sodium Potassium Chloride Glucose NT-Pro-B Natriuret Pep LDL Cholesterol, Calc Cortisol AM Sample Meds: Medications Acetaminophen (Tylenol) 650 mg PO Q6HP PRN PRN Reason: PAIN/FEVER > 101 Albuterol/Ipratropium (Duoneb) 3 ml NEB Q8H [facility] Last Admin: 12/09/19 07:32 Dose: 3 ml Documented by: Albuterol/Ipratropium (Duoneb) 3 ml NEB Q4HP PRN PRN Reason: Shortness Of Breath Apixaban (Eliquis) 2.5 mg PO BID [facility] Last Admin: 12/08/19 20:13 Dose: 2.5 mg Documented by: Atorvastatin Calcium (Lipitor) 10 mg PO HS [facility] Last Admin: 12/08/19 20:14 Dose: 10 mg Documented by: Clonidine HCl (Catapres) 0.1 mg PO QIDP PRN PRN Reason: sbp>150 Dextrose (Dextrose 50%) 0 ml IV UD PRN PRN Reason: Hypoglycemia Diagnostic Test (Pha) (Accu-Chek) [address] [facility] Last Admin: 12/09/19 08:12 Dose: 1 each Documented by: Glucose (Insta-Glucose) 15 gm PO PRN PRN PRN Reason: Hypoglycemia Potassium Chloride 40 meq/ (Dextrose) 520 mls @ 130 mls/hr IV UD PRN PRN Reason: Potassium < 3 Magnesium Sulfate (Magnesium Sulfate) 2 gm in 50 mls @ 50 mls/hr IV UD PRN PRN Reason: Magnesium </= 1.6 Insulin Human Lispro (Humalog) 0 unit SQ ACHS [facility]; Protocol Last Admin: 12/09/19 08:12 Dose: Not Given Documented by: Labetalol HCl (Trandate) 0 mg IV Q2HP PRN PRN Reason: Hypertension Last Admin: 12/08/19 17:22 Dose: 20 mg Documented by: Levothyroxine Sodium (Synthroid) 75 mcg PO ACB [facility] Methylprednisolone Sodium Succinate (Solu-Medrol) 40 mg IV Q12 [facility] Last Admin: 12/08/19 20:13 Dose: 40 mg Documented by: Metoprolol Succinate (Toprol Xl) 25 mg PO DAILY [facility] Metoprolol Tartrate (Lopressor) 5 mg IV Q2HP PRN PRN Reason: Tachyarrhythmias HR>110 Last Admin: 12/08/19 17:22 Dose: 5 mg Documented by: Ondansetron HCl (Zofran) 4 mg IV Q4HP PRN PRN Reason: Nausea And Vomiting Polyethylene Glycol (Miralax) 17 gm PO DAILYP PRN PRN Reason: Constipation Potassium Chloride (Kdur) 40 meq PO UD PRN PRN Reason: Potssium is 3-3.5 Potassium Chloride (Kdur) 40 meq PO UD PRN PRN Reason: Potassium < 3 Fluticasone/Salmeterol (Advair 250-50 Diskus) 1 puff INH BID [facility] Last Admin: 12/09/19 07:52 Dose: Not Given Documented by: Yonathan (Senokot) 2 tab PO DAILYP PRN PRN Reason: Constipation Sodium Chloride (Saline Flush) 10 ml IV Q8 [facility] Last Admin: 12/09/19 05:40 Dose: 10 ml Documented by: Medical - PN: A/P - Time Spent With Patient Total time spent is greater than 50% in coordination of care (as documented) at patient's floor/unit and/or counseling patient: - Narrative A/P Narrative: A: *AECOPD(not on home O2): ran out of 's - *PAF/flutter mild RVR, not new: controlled -CHADSVASC=4 *Hyponatremia, 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: component of volume depletion *Hyperkalemia: 2/2 ACEI and KCl supp, resolved *Severe protein calorie malnutrition/cachexia pulmonary: *Severe deconditioning/debility: Essentially wheelchair bound outside of the house otherwise uses a cane *CAD w/CABG: do not see ASA/statin on home med list *h/o diastolic CHF and RV systolic HF: *Severe Pulm HTN: *Valvular heart dz with Moderate MS/TR: *CKD II: *HTN: on BB/ACEI *Hypothyroidism: *Tobacco abuse: Quit smoking 2 days ago, has been a heavy smoker up to 2ppd * P: -steroids(wean), nebs/RT -IS/Acapella -cont BB and prn lopressor -ACEI held or hyperkalemia -kcl supplement d/c'd -statin -dietary consult -pt/ot -needs prescription for rescue inhaler and advair upon d/c -ppx: eliquis DNR Medical - PN: Qual - VTE Deep Vein Thrombosis/Pulmonary Embolism Present on Admission: No
[2019-12-09 08:21] LABS: Albumin/Globulin Ratio 1.4 (1.0-2.3); Globulin 2.3 gm/dL (2.2-3.7)
[2019-12-09] MEDS: LEVOTHYROXINE 75 MCG TABLET PO SCH (09:08)
[2019-12-09] MEDS: methylPREDNISolone SOD SUCC 40 MG/ML VIAL IV SCH (09:08)
[2019-12-09] MEDS: METOPROLOL SUCCINATE 25 MG TAB.XL.24H PO SCH (09:08)
[2019-12-09] MEDS: APIXABAN 2.5 MG TABLET PO SCH ×2 (09:08→18:39)
--- NOTE | 2019-12-09 09:52 | Discharge Summary ---
Medical - DS: Prov Patient information: Note initiated : 12/09/19 at 9:50 am Service Date, if different from initiated Date: [] Patient: Lincoln Parks 84 y/o M admitted on 12/08/19 for Shortness of breath. Chief Complaint: [] Date of admission: 12/08/19 15:30 Discharge date: 12/10/19 Primary care physician: Maximiliano Brown Consults: 12/08/19 Consult to Physician [CONS] Stat Comment: Consulting Provider: Antonio Song Reason For Exam: Physician to Consult Medical - DS: Meds - Discharge Medications Prescriptions: Fluticasone/Salmeterol [Advair 250-50 Diskus] 1 puff INH BID #1 inhaler Apixaban [Eliquis] 2.5 mg PO BID #60 tab predniSONE [Prednisone] 30 mg PO QAMCC #1 tab Active and Home Medications: Home Medications levothyroxine 75 mcg tablet 75 mcg PO QAM tab 06/18/19 [History Confirmed 12/08/19 Last Taken 09/15/19] lisinopril 10 mg tablet 10 mg PO QAM tab 06/18/19 [History Confirmed 12/08/19 Last Taken 09/15/19] potassium chloride 10 mEq tablet,extended release(part/cryst) 10 meq PO QDAY 06/18/19 [History Confirmed 12/08/19 Last Taken 09/15/19] Metoprolol Succinate [Toprol Xl] 25 mg PO QDAY 12/08/19 [History Confirmed 12/08/19 Last Taken Unknown] Home Medications levothyroxine 75 mcg tablet 75 mcg PO QAM tab 06/18/19 [History Confirmed 12/08/19 Last Taken 09/15/19] lisinopril 10 mg tablet 10 mg PO QAM tab 06/18/19 [History Confirmed 12/08/19 Last Taken 09/15/19] Metoprolol Succinate [Toprol Xl] 25 mg PO QDAY 12/08/19 [History Confirmed 12/08/19 Last Taken Unknown] Apixaban [Eliquis] 2.5 mg PO BID #60 tab 12/09/19 [Rx Last Taken Unknown] Fluticasone/Salmeterol [Advair 250-50 Diskus] 1 puff INH BID #1 inhaler 12/09/19 [Rx Last Taken Unknown] predniSONE [Prednisone] 30 mg PO [facility] #1 tab 12/09/19 [Rx Last Taken Unknown] Medical - DS: Hosp Hospital Course: Mr. Parks is a 84 year old M Presents the ED with shortness of breath progressing for 2 days. He is accompanied by his daughter EASTON. Is tachycardic on arrival, only recorded heart rate reads highest 111. He was found to be in A. fib RVR. Old notes he was in A. fib RVR when he was hospitalized with COPD in August. Chronic cough he does not feel it is nicely changed. Feels wheezy. He was started on apixaban last hospitalization but I do not see it on his home medications. He is on metoprolol. He is also found to be hyperkalemic at 5.5. He is on an SONIDO inhibitor and potassium supplements. He received several breathing treatments in the ED with improvement. 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 Denies chest pain. He was also hypertensive in the ED. Patient states he is run out of his inhaler. 12/09 Is feeling better. He has continued cough. Shortness of breath improving. Poor sleep but otherwise no new complaints. Heart rate controlled. 12/10 Patient doing well. Feeling well. Desires to go home. Ambulated down the vyas back to his room without desaturations, maintaining 90 or higher. Given patient's age and significant comorbidities he is a high risk for readmission. 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 fib RVR COPD exacerbation hyponatremia hyperkalemia Secondary discharge diagnosis: Severe protein calorie malnutrition pulmonary cachexia severe deconditioning debility coronary artery disease diastolic heart failure right ventricle heart failure severe pulmonary hypertension valvular heart disease chronic kidney disease hypertension hypothyroidism tobacco abuse - Time Spent with Patient Total time spent providing and/or coordinating discharge services: Greater than 30 minutes Medical - DS: Exam - Constitutional Vitals: Vital Signs Temp Pulse Pulse Resp BP BP Pulse Ox 12/09/19 07:32 73 13 12/09/19 04:04 12 91 12/09/19 04:01 98.1 F 26 H 125/63 92 12/09/19 00:41 19 89 L 12/09/19 00:01 98.0 F 29 H 133/51 90 12/08/19 23:07 89 17 12/08/19 21:06 15 94 12/08/19 20:01 97.5 F 17 128/46 93 12/08/19 20:00 17 128/46 93 12/08/19 19:51 66 12/08/19 19:25 60 12/08/19 19:24 54 L 93 12/08/19 18:45 97.5 F 12/08/19 17:56 124/44 90 12/08/19 17:01 191/90 91 12/08/19 16:09 98.7 F 29 H 179/67 92 12/08/19 15:46 97.7 F 44 L 23 H 158/75 91 12/08/19 15:30 24 H 12/08/19 14:34 44 L 23 H 158/75 91 12/08/19 14:30 81 24 H 158/75 90 12/08/19 14:29 65 25 H 173/69 92 12/08/19 13:14 51 L 22 90 12/08/19 12:42 37 L 18 193/74 91 12/08/19 12:32 64 18 193/74 92 12/08/19 12:16 23 H 192/81 12/08/19 12:01 96 H 13 158/80 100 12/08/19 11:47 87 23 H 157/63 94 12/08/19 11:34 22 172/79 12/08/19 11:31 23 H 172/79 12/08/19 11:16 92 H 24 H 160/89 93 02/08/20 11:13 25 H 162/93 12/08/19 10:59 97.7 F 111 H 22 155/72 90 Intake and Output 12/08/19 12/09/19 12/09/19 21:59 05:59 13:59 Intake Total 490 420 Output Total 31 31 Balance 459 389 Intake: IV 250 Sodium Chloride 0.9% 250 ml @ 250 75 mls/hr IV BOLUS ONE Rx#: [id number] Oral 240 180 GI Tube Flush 240 Output: Void Amount 30 30 # of times incontinent of urine 1 1 Other: Meal Dinner Percent of Meal Consumed 50% Feeding Ability Assist with Tray Set Up Urine Appearance Clear Clear Urine Color Dark Yellow Dark Yellow # Bowel Movements 0 Weight 44.089 kg Medical - DS: Data Labs on day of discharge: Labs from last 24 hours 12/09/19 12/09/19 12/09/19 05:00 05:00 05:00 WBC 10.5 RBC 3.74 L Hgb 11.8 L Hct 35.7 L MCV 95.5 MCH 31.6 MCHC 33.1 RDW 13.1 Plt Count 360 MPV 9.6 Gran % 86.7 H Lymph % (Auto) 8.2 L [place] % (Auto) 5.1 Eos % (Auto) 0 Baso % (Auto) 0 Gran # 9.09 H Lymph # (Auto) 0.86 L [place] # (Auto) 0.53 Eos # (Auto) 0 Baso # (Auto) 0 Sodium 132 L Potassium 4.9 Chloride 97 Carbon Dioxide 24 Anion Gap 11.0 BUN 21 Creatinine 1.0 GFR Calculation 68 Glucose 130 H Osmolality Uric Acid 6.3 Calcium 8.9 Phosphorus 4.3 Magnesium 2.2 Total Bilirubin 0.4 Direct Bilirubin < 0.2 GGT 37 AST 14 ALT 6 Alkaline Phosphatase 70 Lactate Dehydrogenase 229 Troponin T NT-Pro-B Natriuret Pep Total Protein 5.6 L Albumin 3.3 Globulin 2.3 Albumin/Globulin Ratio 1.4 Triglycerides 48 Cholesterol LDL Cholesterol, Calc Non-HDL Cholesterol HDL Cholesterol TSH Cortisol AM Sample 10.0 Urine Color Urine Appearance Urine pH Ur Specific [place] Urine Protein Urine Glucose (UA) Urine Ketones Urine Occult Blood Urine Nitrate Urine Bilirubin Urine Urobilinogen Ur Leukocyte Esterase Urine Osmolality Ur Random Sodium 12/08/19 12/08/19 12/08/19 23:26 23:26 18:00 WBC RBC Hgb Hct MCV MCH MCHC RDW Plt Count MPV Gran % Lymph % (Auto) [place] % (Auto) Eos % (Auto) Baso % (Auto) Gran # Lymph # (Auto) [place] # (Auto) Eos # (Auto) Baso # (Auto) Sodium 131 L Potassium 4.7 Chloride 93 L Carbon Dioxide 25 Anion Gap 13.0 BUN 20 Creatinine 1.1 GFR Calculation 61 Glucose 190 H Osmolality Uric Acid Calcium 8.9 Phosphorus Magnesium Total Bilirubin Direct Bilirubin GGT AST ALT Alkaline Phosphatase Lactate Dehydrogenase Troponin T NT-Pro-B Natriuret Pep Total Protein Albumin Globulin Albumin/Globulin Ratio Triglycerides Cholesterol LDL Cholesterol, Calc Non-HDL Cholesterol HDL Cholesterol TSH Cortisol AM Sample Urine Color Yellow Urine Appearance Clear Urine pH 5.0 Ur Specific [place] 1.024 Urine Protein Neg Urine Glucose (UA) Negative Urine Ketones Neg Urine Occult Blood Neg Urine Nitrate Neg Urine Bilirubin Neg Urine Urobilinogen Neg Ur Leukocyte Esterase Neg Urine Osmolality 755 Ur Random Sodium < 20 12/08/19 12/08/19 12/08/19 11:37 11:37 11:37 WBC RBC Hgb Hct MCV MCH MCHC RDW Plt Count MPV Gran % Lymph % (Auto) [place] % (Auto) Eos % (Auto) Baso % (Auto) Gran # Lymph # (Auto) [place] # (Auto) Eos # (Auto) Baso # (Auto) Sodium Potassium Chloride Carbon Dioxide Anion Gap BUN Creatinine GFR Calculation Glucose Osmolality 287 Uric Acid Calcium Phosphorus Magnesium 2.3 Total Bilirubin Direct Bilirubin GGT AST ALT Alkaline Phosphatase Lactate Dehydrogenase Troponin T NT-Pro-B Natriuret Pep Total Protein Albumin Globulin Albumin/Globulin Ratio Triglycerides 65 Cholesterol 183 LDL Cholesterol, Calc 117 H Non-HDL Cholesterol 129 HDL Cholesterol 54 TSH 0.29 Cortisol AM Sample 31.5 H Urine Color Urine Appearance Urine pH Ur Specific [place] Urine Protein Urine Glucose (UA) Urine Ketones Urine Occult Blood Urine Nitrate Urine Bilirubin Urine Urobilinogen Ur Leukocyte Esterase Urine Osmolality Ur Random Sodium 12/08/19 12/08/19 12/08/19 11:37 11:37 11:37 WBC 9.7 RBC 4.48 L Hgb 14.2 Hct 43.2 MCV 96.4 MCH 31.7 MCHC 32.9 RDW 13.1 Plt Count 382 MPV 9.4 Gran % 72.5 Lymph % (Auto) 12.4 L [place] % (Auto) 14.6 H Eos % (Auto) 0.1 Baso % (Auto) 0.4 Gran # 7.06 Lymph # (Auto) 1.21 L [place] # (Auto) 1.42 H Eos # (Auto) 0.01 Baso # (Auto) 0.04 Sodium 130 L Potassium 5.5 H Chloride 93 L Carbon Dioxide 26 Anion Gap 11.0 BUN 17 Creatinine 1.2 GFR Calculation 55 Glucose 129 H Osmolality Uric Acid Calcium 9.7 Phosphorus Magnesium Total Bilirubin 0.5 Direct Bilirubin GGT AST 20 ALT 11 Alkaline Phosphatase 95 Lactate Dehydrogenase Troponin T < 0.01 NT-Pro-B Natriuret Pep 2983.0 H Total Protein 7.1 Albumin 4.3 Globulin 2.8 Albumin/Globulin Ratio 1.5 Triglycerides Cholesterol LDL Cholesterol, Calc Non-HDL Cholesterol HDL Cholesterol TSH Cortisol AM Sample Urine Color Urine Appearance Urine pH Ur Specific [place] Urine Protein Urine Glucose (UA) Urine Ketones Urine Occult Blood Urine Nitrate Urine Bilirubin Urine Urobilinogen Ur Leukocyte Esterase Urine Osmolality Ur Random Sodium Medical - DS: A/P - Patient/Caregiver Discharge Instructions Activity: as per physical therapy Diet: Cardiac Prescriptions: Fluticasone/Salmeterol [Advair 250-50 Diskus] 1 puff INH BID #1 inhaler Apixaban [Eliquis] 2.5 mg PO BID #60 tab predniSONE [Prednisone] 30 mg PO [facility] #1 tab - Follow up Plan Follow up with: Maximiliano Brown MD [Primary Care Provider] - Disposition: Home Health Service Prognosis: Undetermined Rehab Potential: Fair Overall status at discharge: patient is progressing back to baseline Medical - DS: Qual - VTE Deep Vein Thrombosis/Pulmonary Embolism Present on Admission: No
[2019-12-09] MEDS: ATORVASTATIN 20 MG TABLET PO SCH (18:39)
[2019-12-09] MEDS: predniSONE 20 MG TABLET PO SCH (22:15)
[2019-12-10] MEDS: 0.9 % SODIUM CHLORIDE 10 ML SYRINGE IV SCH (05:19)
[2019-12-10] MEDS: FLUTICASONE/SALMETEROL 250/50 INHALER #14 INH SCH (07:37)
[2019-12-10] MEDS: METOPROLOL SUCCINATE 25 MG TAB.XL.24H PO SCH (07:37)
[2019-12-10] MEDS: predniSONE 20 MG TABLET PO SCH (07:37)
[2019-12-10] MEDS: APIXABAN 2.5 MG TABLET PO SCH (07:40)
[2019-12-10] MEDS: LEVOTHYROXINE 75 MCG TABLET PO SCH (07:40)
[2019-12-10] MEDS: IPRATROPIUM/ALBUTEROL 3 ML AMPUL.NEB NEB SCH (07:43)
== END 2019-12-10 10:13 | disposition home health service (06) | DRG 190 ==
LOC: ED 10:52 → ICU 15:30
PROVIDERS: ADMIT Internal Medicine; ATTEND Internal Medicine

== ENCOUNTER 2020-11-03 04:03 | Inpatient (IN) ==
[2020-11-03] MEDS ORDERED: 0.9 % SODIUM CHLORIDE 500 ML IV ONE (04:35)
[2020-11-03] MEDS ORDERED: ACETAMINOPHEN 325 MG TABLET PO ONE (04:42)
[2020-11-03] MEDS ORDERED: cefTRIAXone 1 GM VIAL IV ONE ×2 (04:48→10:24)
--- NOTE | 2020-11-03 04:48 | Emergency Department Note ---
SOB HPI General Chief Complaint: Shortness of Breath/Dyspnea Stated Complaint: breathing difficulty Time Seen by Provider: 11/03/20 04:22 Mode of arrival: EMS Limitations: physical limitation History of Present Illness HPI Narrative: Narrative: Information reported from nursing and EMS includes that patient was at the [facility] and was brought by EMS after found that he was quite short of breath and saturations were low. He was 75% on their arrival. He was given 2 L and 2 nebulizers and then placed on a nonrebreather mask. He also had low blood pressure of 84/48 and was given 250 cc IV with his blood pressure repeat 118/68. correction also called and let us know that they found Kleenex/tissues with some bloody sputum in it. In his chart is that he has been taking prednisone or has in the past as well as some Eliquis and multiple other medications. Patient's ability to give accurate and complete information is quite limited. He does not seem to remember or know. He gets medications and just takes them and does not know much about them. Chart review includes the above as well as being on cefipime twice daily IM and azithromycin 250 mg PO daily. He seems to think that he has been on it for 3 to 4 years. He is uncertain about being on steroid. His current medication list from the [facility] does not indicate being on prednisone. Related Data Home Medications Medication Instructions Recorded Confirmed levothyroxine 75 mcg tablet 75 mcg PO QAM tab 06/18/19 12/14/19 lisinopril 10 mg tablet 10 mg PO QAM tab 06/18/19 12/14/19 metoprolol succinate 25 mg PO QDAY 12/08/19 11/03/20 amlodipine 10 mg PO QDAY 11/03/20 11/03/20 Previous Rx's Medication Instructions Recorded apixaban 2.5 mg PO BID #60 tab 12/09/19 fluticasone propion-salmeterol 1 puff INH BID #1 inhaler 12/09/19 prednisone 30 mg PO QAC #1 tab 12/09/19 Allergies Allergy/AdvReac Type Severity Reaction Status Date / Time No Known Drug Allergies Allergy Verified 12/14/19 08:03 Review of Systems ROS ROS Narrative: Narrative: Occasional nausea that he has had for a long period of time. No specific vomiting. No with any major symptoms or signs that he is able to reliably for or give. He is denying at times that he has had blood in his sputum or that he is shakier than usual or not. [facility] Narrative Patient History Narrative: Narrative: Medical/Surgical/Family History All Active Problems (Updated 11/03/20 @ 08:30 by Brandon Hernandez DO) Hypoxia (Acute) Community acquired pneumonia (Acute) Atrial fibrillation with rapid ventricular response (Acute) Hypotension (Acute) DNR (do not resuscitate) (Acute) Acute exacerbation of chronic obstructive airways disease (Acute) DNI (do not intubate) (Acute) Hemoptysis (Acute) Dehydration (Acute) Chronic anticoagulation (Chronic) COPD (chronic obstructive pulmonary disease) (Acute) Senile dementia (Acute) Low back pain syndrome (Chronic) Urinary urgency (Chronic) PVD (peripheral vascular disease) (Chronic) Right carotid bruit (Chronic) Hypothyroidism (Chronic) CAD (coronary artery disease) (Chronic) Hyperlipidemia (Chronic) Hypertension (Chronic) Postural hypotension (Chronic) FH: stroke (Chronic) Anxiety (Chronic) Medical History (Updated 11/03/20 @ 08:30 by Brandon Hernandez DO) Accidental drug ingestion (Inactive) Acute exacerbation of chronic obstructive airways disease (Inactive) Anxiety (Chronic) Atrial fibrillation, new onset (Inactive) CAD (coronary artery disease) (Chronic) Chronic anticoagulation (Chronic) apixaban per chart (11/03/2020) Encounter for long-term (current) use of medications (Inactive) Encounter for smoking cessation counseling (Inactive) Patient was counseled for 3 minutes on smoking cessation behavior modification techniques. Patient was also instructed on the importance of safety of smoking within the home environment. FH: stroke (Chronic) Hyperlipidemia (Chronic) Hypertension (Chronic) Hyponatremia (Inactive) Hyponatremia with excess extracellular fluid volume (Inactive) Hypothyroidism (Chronic) Impacted cerumen, bilateral (Resolved) Cerumen impaction resolved after last irrigation. Low back pain syndrome (Chronic) Pedal edema (Inactive) Pneumonia (Resolved ~07/2004) Postural hypotension (Chronic) PVD (peripheral vascular disease) (Chronic) Right carotid bruit (Chronic) SOB (shortness of breath) (Inactive) Urinary urgency (Chronic) Surgical History (Updated 11/03/20 @ 05:21 by Brandon Hernandez DO) History of aorto-femoral bypass (Inactive) Bilateral History of bilateral cataract extraction (Acute) History of carotid endarterectomy (Inactive) left History of colonoscopy (Inactive ~2006) History of coronary artery bypass graft (Inactive ~08/2001) History of prostatectomy (Inactive ~2001) Family History Heart disease Father Stroke Mother Asthma Mother Social History Smoking Status: Former smoker Alcohol Intake Frequency: 2+ drinks per day Substance Use: does not use Exam Narrative Narrative: Narrative: General Limitations: physical limitation General appearance: Present alert, cachectic, nontoxic and other (moderate breathing effort/difficulty.) Head Head: Present atraumatic and normocephalic Eye Eye: Present normal appearance, PERRL and EOMI ENT ENT: Present mucous membranes dry Neck Neck: Present trachea midline; Absent lymphadenopathy and thyromegaly Chest Chest: Present symmetric chest wall rise Respiratory Respiratory: Present normal lung sounds bilaterally; Absent respiratory distress, rales/crackles, wheezes, stridor, accessory muscle use and prolonged expiratory phase Cardiovascular Cardiovascular: Present regular rate and normal rhythm; Absent systolic murmur and diastolic murmur Adbominal Abdominal: Present soft; Absent distention, tenderness, guarding, rebound, rigidity, organomegaly and mass Extremities Extremities: Present normal capillary refill; Absent pedal edema, pretibial edema, calf tenderness and cyanosis Back Back: Absent CVA tenderness (R), CVA tenderness (L) and spinous process tenderness Neurological Neurological: Present alert and oriented X3 Psychiatric Psychiatric: Present normal affect, polite and pleasant; Absent depressed, agitated, anxious and poor eye contact Skin Skin: Present warm (WNL) and dry; Absent cyanosis and pallor Course Vital Signs Vital signs: Vital Signs Temperature 101.1 F H 11/03/20 04:05 Pulse Rate 80 11/03/20 04:05 Respiratory Rate 36 H 11/03/20 04:05 Blood Pressure 160/78 11/03/20 04:05 Pulse Oximetry (%) 100 11/03/20 04:05 Temperature 99.2 F H 11/03/20 07:46 Pulse Rate 124 H 11/03/20 07:46 Respiratory Rate 24 H 11/03/20 07:31 Blood Pressure 141/65 11/03/20 07:31 Pulse Oximetry (%) 96 11/03/20 07:46 [facility] MDM Narrative Medical decision making narrative: Narrative: 5:02 AM - interviewed and examined. 4:52 AM - EKG demonstrates atrial fibrillation with rapid ventricular rate around 150 bpm. Old anterior septal WV possible with left axis deviation also. Some ST nonspecific changes with possible depression V2, V1 not readable, flattening in V5 and 6. 4:58 AM - ABG demonstrates pH mildly elevated at 7.49 with a PCO2 of 31, saturation 95%, bicarb normal at 23.6. Base excess normal at 1.0. Lactic acid of the ABG was 1.6. Patient has temperature, is on chronic antibiotics for his COPD apparently. He is at risk of resistant organisms. He was hypotensive even now tachycardic but chronic A. fib. Metoprolol 25 daily is not holding his rate down. Most likely he is septic until proven otherwise. Blood cultures already obtained. 5:30 AM - patient's chest x-ray demonstrates bilateral infiltrates in the bases, early plus significant diffuse infiltrate in the right middle lung chow that is significantly worse than 11 months ago. Further investigation with the [facility] indicates that the azithromycin and cefepime were only recently started 2 days ago, patient has had 1 g of the cefepime twice on the third, once on Tuesday, azithromycin 500 on Tuesday 2 days ago and 250 yesterday. These were given due to his significant fever. He did have a Covid test on , now 4 days ago, which was negative. Repeat Covid testing here with the [employer] machine/technology POC, was negative. Cepheid PCR ordered. Bed availability not until later in the morning. 6:18 AM - labs come back with white count 12.4 and mild anemia which she has had before. Appears mildly dehydrated with a BUN of 34 and creatinine up to 1.5. His most recent previous was 29 and 1.0. BNP lower than the last test which was done 11 months ago. This is 1004 and 81 compared to 2983. Still pending is the procalcitonin and D-dimer. 6:22 AM - D-dimer comes back 2.62. This could be elevated due to the pneumonia. His creatinine of 1.[address] angio of the chest. Previous discussion with patient is that he does not want to be moved to another facility or at least out of town. 6:36 AM's urine dip negative for leukocytes and nitrates. Specific gravity 1.020. Trace amount of protein. Trace amount of blood. 7:40 AM - I spoke with Dr. Antonio Song, hospitalist, who is willing to accept this patient if we can confirm with family that he is DNR/DNI and does not want to be transferred out. CephEID COVID test is still pending. He points out that this pt was also DNR/DNI approximately a year ago when he was admitted. 7:46 AM - I attempted to call patient's daughter, Carmen Awad, - no answer - kept ringing. 8:15 AM - spoke with daughter Radhika. Soon after I was able to have a different number to speak with Carmen, the other daughter, who's number corrected is [phone]. There is also a grandson Cuate who is at [phone]. These numbers coming from the [facility] paperwork. The conference call with Radhika and Mana concluded to keep patient here as they feel their father is near the end of his life and less movement and actions are indicated, let him have his way or wishes as their feelings. They confirmed that he is DNR/DNI. Hospital nursing supervisor prepress apprised who will let hospitalist know. Patient will be admitted. Lab Data Result diagrams: 11/03/20 04:46 11/03/20 04:46 Labs: Lab Results 11/03/20 11/03/20 11/03/20 Range/Units 04:46 04:46 04:46 WBC 12.4 H (4.5-11.0) K/mcL RBC 4.32 L (4.50-5.90) M/mcL Hgb 13.3 L (13.5-16.5) g/dL Hct 40.9 L (41.0-55.0) % MCV 94.7 (80.0-100.0) fL MCH 30.8 (26.0-34.0) pg MCHC 32.5 (31.0-36.0) g/dL RDW 13.0 (11.5-14.5) % Plt Count 264 (140-440) K/mcL MPV 10.6 H (7.4-10.4) fL Neut % (Auto) 91.7 H (38.0-78.0) % Lymph % (Auto) 2.8 L (15.0-49.0) % [place] % (Auto) 5.3 (1.0-12.0) % Eos % (Auto) 0 (0.0-7.0) % Baso % (Auto) 0.2 (0.0-2.0) % Lymph # (Auto) 0.35 L (1.50-4.80) K/mcL [place] # (Auto) 0.65 (0.10-0.90) K/mcL Eos # (Auto) 0 (0.00-0.70) K/mcL Baso # (Auto) 0.02 (0.00-0.20) K/mcL Absolute Neutrophils 11.34 H (1.80-8.00) K/mcL D-Dimer 2.62 H (0.27-0.50) ug/mL Sodium 140 (133-145) mmol/L Potassium 3.7 (3.3-5.1) mmol/L Chloride 102 (96-108) mmol/L Carbon Dioxide 25 (22-30) mmol/L Anion Gap 13.0 (8.0-16.0) BUN 34 H (8-23) mg/dL Creatinine 1.5 H (0.7-1.2) mg/dL GFR Calculation 41 Glucose 108 H (70-105) mg/dL Calcium 8.4 L (8.6-10.4) mg/dL Total Bilirubin 0.5 (0.1-1.0) mg/dL AST 21 (<40) U/L ALT 8 (<40) U/L Alkaline Phosphatase 82 (39-117) U/L Troponin T (<0.03) ng/mL NT-Pro-B Natriuret Pep 1481.0 H (<450.0) pg/mL Total Protein 6.6 (5.9-8.4) gm/dL Albumin 3.4 (3.2-5.2) gm/dL Globulin 3.2 (2.2-3.7) gm/dL Albumin/Globulin Ratio 1.1 (1.0-2.3) Procalcitonin (<0.10) ng/mL TSH (0.27-5.01) uIU/mL 11/03/20 11/03/20 11/03/20 Range/Units 04:46 04:46 04:46 WBC (4.5-11.0) K/mcL RBC (4.50-5.90) M/mcL Hgb (13.5-16.5) g/dL Hct (41.0-55.0) % MCV (80.0-100.0) fL MCH (26.0-34.0) pg MCHC (31.0-36.0) g/dL RDW (11.5-14.5) % Plt Count (140-440) K/mcL MPV (7.4-10.4) fL Neut % (Auto) (38.0-78.0) % Lymph % (Auto) (15.0-49.0) % [place] % (Auto) (1.0-12.0) % Eos % (Auto) (0.0-7.0) % Baso % (Auto) (0.0-2.0) % Lymph # (Auto) (1.50-4.80) K/mcL [place] # (Auto) (0.10-0.90) K/mcL Eos # (Auto) (0.00-0.70) K/mcL Baso # (Auto) (0.00-0.20) K/mcL Absolute Neutrophils (1.80-8.00) K/mcL D-Dimer (0.27-0.50) ug/mL Sodium (133-145) mmol/L Potassium (3.3-5.1) mmol/L Chloride (96-108) mmol/L Carbon Dioxide (22-30) mmol/L Anion Gap (8.0-16.0) BUN (8-23) mg/dL Creatinine (0.7-1.2) mg/dL GFR Calculation Glucose (70-105) mg/dL Calcium (8.6-10.4) mg/dL Total Bilirubin (0.1-1.0) mg/dL AST (<40) U/L ALT (<40) U/L Alkaline Phosphatase (39-117) U/L Troponin T < 0.01 (<0.03) ng/mL NT-Pro-B Natriuret Pep (<450.0) pg/mL Total Protein (5.9-8.4) gm/dL Albumin (3.2-5.2) gm/dL Globulin (2.2-3.7) gm/dL Albumin/Globulin Ratio (1.0-2.3) Procalcitonin 1.84 H (<0.10) ng/mL TSH 0.67 (0.27-5.01) uIU/mL Discharge Plan Patient/Caregiver Discharge Instructions Pt seen by GLACING MACHINE TENDER/PA only: No Clinical Impression: Hypoxia, Atrial fibrillation with rapid ventricular response, DNR (do not resuscitate), Acute exacerbation of chronic obstructive airways disease, DNI (do not intubate), Hemoptysis, Dehydration Community acquired pneumonia Qualifiers: Laterality: right Lung location: middle lobe of lung Qualified Code(s): J18.9 - Pneumonia, unspecified organism Hypotension Qualifiers: Hypotension type: other hypotension type Qualified Code(s): I95.89 - Other hypotension Patient Disposition: Xfer As Inpt ([facility]) Condition: Undetermined Follow up with: Maximiliano Brown MD [Primary Care Provider] - Prescriptions: No Action levothyroxine [Levoxyl] 75 mcg tablet 75 mcg PO QAM RF: 0 lisinopril 10 mg tablet 10 mg PO QAM RF: 0 metoprolol succinate 50 MG tablet extended release 24 hr 25 mg PO QDAY RF: 0 apixaban 2.5 MG tablet 2.5 mg PO BID Qty: 60 RF: 0 fluticasone propion-salmeterol 1 PUFF inhaler 1 puff INH BID Qty: 1 RF: 0 prednisone 10 MG tablet 30 mg PO QAMCC Qty: 1 RF: 0 amlodipine 10 mg Tablet 10 mg PO QDAY RF: 0
[2020-11-03 05:52] LABS: Basophils # (Auto) 0.02 K/mcL (0.00-0.20); Basophils % (Auto) 0.2 % (0.0-2.0); Eosinophils # (Auto) 0 K/mcL (0.00-0.70); Eosinophils % (Auto) 0 % (0.0-7.0); Hematocrit 40.9 % (41.0-55.0); Hemoglobin 13.3 g/dL (13.5-16.5); Lymphocytes # (Auto) 0.35 K/mcL (1.50-4.80); Lymphocytes % (Auto) 2.8 % (15.0-49.0); Mean Cell Volume 94.7 fL (80.0-100.0); Mean Corpuscular HGB Conc 32.5 g/dL (31.0-36.0); Mean Platelet Volume 10.6 fL (7.4-10.4); Monocytes # (Auto) 0.65 K/mcL (0.10-0.90); Monocytes % (Auto) 5.3 % (1.0-12.0); Neutrophils % (Auto) 91.7 % (38.0-78.0); Platelet Count 264 K/mcL (140-440); RBC 4.32 M/mcL (4.50-5.90); WBC 12.4 K/mcL (4.5-11.0)
[2020-11-03 06:14] LABS: ALT/SGPT 8 U/L (<40); AST/SGOT 21 U/L (<40); Albumin 3.4 gm/dL (3.2-5.2); Albumin/Globulin Ratio 1.1 (1.0-2.3); Alkaline Phosphatase 82 U/L (39-117); Bilirubin,Total 0.5 mg/dL (0.1-1.0); Blood Urea Nitrogen 34 mg/dL (8-23); Calcium 8.4 mg/dL (8.6-10.4); Carbon Dioxide 25 mmol/L (22-30); Chloride 102 mmol/L (96-108); Globulin 3.2 gm/dL (2.2-3.7); Glomerular Filtration Rate 41; Glucose 108 mg/dL (70-105)
[2020-11-03] MEDS ORDERED: METOPROLOL TARTRATE 5 MG/5 ML VIAL IV ONE ×2 (07:19→16:24)
--- NOTE | 2020-11-03 09:10 | XRay Report ---
CLINICAL INFORMATION: dyspnea COMPARISON: 12/08/2019 FINDINGS: Mild cardiomegaly is unchanged. Sternotomy changes again seen. The remaining mediastinum and pulmonary vasculature are normal. COPD changes are again seen. Moderate interstitial/alveolar infiltrate has developed in the right midlung and base. A small, predominantly interstitial, infiltrate has also developed in the left base. Small right pleural effusion noted IMPRESSION: Moderate infiltrate in the right midlung/ base and small vague infiltrate left base. Consider aspiration versus pneumonia. Underlying COPD Interpreted and Authenticated by: Saúl Renteria 11/03/20
[2020-11-03] MEDS ORDERED: cefTRIAXone 2 GM in DEXTROSE 5% IN WATER 50 ML IV ONE (10:30)
--- NOTE | 2020-11-03 10:31 | Internal Med History&Physical ---
HPI History of Present Illness Patient information: Note initiated : 11/03/20 at 10:21 am Service Date, if different from initiated Date: [] Patient: Lincoln Parks a 85 y/o M admitted on 11/03/20 for breathing difficulty. Chief Complaint: [] History of present illness: Mr. Parks is a 85 year old M Presents from the [facility] brought in by EMS because he was short of breath and he was hypoxic. He is 75% on arrival. Even nebulizers and supplemental oxygen. His blood pressure initially was 84/48 and was given 250 cc bolus of fluid which brought him up into the 1 teens and has had good pressure since then. He was on a nonrebreather 10 L in the ER and in the ICU he is currently on 8 L high flow nasal cannula. Covid test is negative. Chest x-ray shows moderate right infiltrate and some patchy on the left. Had a fever and elevated white blood cell count. He had elevated pro calcitonin. His creatinine was elevated above baseline. Patient states he has a productive cough of yellow sputum which he thinks is may be worse than baseline. He has shortness of breath but he says that is normal for him. Family reports that some of his sputum had trace blood in it. Is also feet found to be in A. fib RVR with a rate of 130 and was given Lopressor IV with good results. Review of Systems: Pertinent positives as above. Denies headache/fever/chills/nausea/vomiting/chest or abdominal pain/diarrhea. Remaining 10 point review of system reviewed negative PFSH PFSH All Active Problems (Updated 11/03/20 @ 08:30 by Brandon Hernandez DO) Hypoxia (Acute) Community acquired pneumonia (Acute) Atrial fibrillation with rapid ventricular response (Acute) Hypotension (Acute) DNR (do not resuscitate) (Acute) Acute exacerbation of chronic obstructive airways disease (Acute) DNI (do not intubate) (Acute) Hemoptysis (Acute) Dehydration (Acute) Chronic anticoagulation (Chronic) COPD (chronic obstructive pulmonary disease) (Acute) Senile dementia (Acute) Low back pain syndrome (Chronic) Urinary urgency (Chronic) PVD (peripheral vascular disease) (Chronic) Right carotid bruit (Chronic) Hypothyroidism (Chronic) CAD (coronary artery disease) (Chronic) Hyperlipidemia (Chronic) Hypertension (Chronic) Postural hypotension (Chronic) FH: stroke (Chronic) Anxiety (Chronic) Medical History (Updated 11/03/20 @ 08:30 by Brandon Hernandez DO) Accidental drug ingestion (Inactive) Acute exacerbation of chronic obstructive airways disease (Inactive) Anxiety (Chronic) Atrial fibrillation, new onset (Inactive) CAD (coronary artery disease) (Chronic) Chronic anticoagulation (Chronic) apixaban per chart (11/03/2020) Encounter for long-term (current) use of medications (Inactive) Encounter for smoking cessation counseling (Inactive) Patient was counseled for 3 minutes on smoking cessation behavior modification techniques. Patient was also instructed on the importance of safety of smoking within the home environment. FH: stroke (Chronic) Hyperlipidemia (Chronic) Hypertension (Chronic) Hyponatremia (Inactive) Hyponatremia with excess extracellular fluid volume (Inactive) Hypothyroidism (Chronic) Impacted cerumen, bilateral (Resolved) Cerumen impaction resolved after last irrigation. Low back pain syndrome (Chronic) Pedal edema (Inactive) Pneumonia (Resolved ~07/2004) Postural hypotension (Chronic) PVD (peripheral vascular disease) (Chronic) Right carotid bruit (Chronic) SOB (shortness of breath) (Inactive) Urinary urgency (Chronic) Surgical History (Updated 11/03/20 @ 05:21 by Brandon Hernandez DO) History of aorto-femoral bypass (Inactive) Bilateral History of bilateral cataract extraction (Acute) History of carotid endarterectomy (Inactive) left History of colonoscopy (Inactive ~2006) History of coronary artery bypass graft (Inactive ~08/2001) History of prostatectomy (Inactive ~2001) Family History Mother Stroke Asthma Father Heart disease Social History (Updated 12/16/19 @ 13:53 by Maximiliano Brown MD) household members: spouse marital status: occupational status: retired leisure activities: other smoking status: Former smoker alcohol intake frequency: 2+ drinks per day substance use type: does not use additional history: Helps care for ailing . Hobbies - Poker MEDS/ALLERGIES Home Medications and Allergies Home Medications Medication Instructions Recorded Confirmed Type levothyroxine 75 mcg tablet 75 mcg PO QAM tab 06/18/19 12/14/19 History lisinopril 10 mg tablet 10 mg PO QAM tab 06/18/19 12/14/19 History metoprolol succinate 25 mg PO QDAY 12/08/19 11/03/20 History apixaban 2.5 mg PO BID #60 tab 12/09/19 12/14/19 Rx fluticasone propion-salmeterol 1 puff INH BID #1 inhaler 12/09/19 12/14/19 Rx prednisone 30 mg PO QAC #1 tab 12/09/19 12/14/19 Rx amlodipine 10 mg PO QDAY 11/03/20 11/03/20 History Allergies Allergy/AdvReac Type Severity Reaction Status Date / Time No Known Drug Allergies Allergy Verified 12/14/19 08:03 EXAM Constitutional Vitals: Temp Pulse Resp BP Pulse Ox 99.2 F H 100 H 33 H 120/64 95 11/03/20 07:46 11/03/20 08:01 11/03/20 08:01 11/03/20 08:01 11/03/20 08:01 DATA Data Completed and Pending Labs: Labs from last 24 hours 11/03/20 11/03/20 11/03/20 04:46 04:46 04:46 WBC RBC Hgb Hct MCV MCH MCHC RDW Plt Count MPV Neut % (Auto) Lymph % (Auto) [place] % (Auto) Eos % (Auto) Baso % (Auto) Lymph # (Auto) [place] # (Auto) Eos # (Auto) Baso # (Auto) Absolute Neutrophils D-Dimer Sodium Potassium Chloride Carbon Dioxide Anion Gap BUN Creatinine GFR Calculation Glucose Calcium Total Bilirubin AST ALT Alkaline Phosphatase Troponin T < 0.01 NT-Pro-B Natriuret Pep Total Protein Albumin Globulin Albumin/Globulin Ratio Procalcitonin 1.84 H TSH 0.67 11/03/20 11/03/20 11/03/20 04:46 04:46 04:46 WBC 12.4 H RBC 4.32 L Hgb 13.3 L Hct 40.9 L MCV 94.7 MCH 30.8 MCHC 32.5 RDW 13.0 Plt Count 264 MPV 10.6 H Neut % (Auto) 91.7 H Lymph % (Auto) 2.8 L [place] % (Auto) 5.3 Eos % (Auto) 0 Baso % (Auto) 0.2 Lymph # (Auto) 0.35 L [place] # (Auto) 0.65 Eos # (Auto) 0 Baso # (Auto) 0.02 Absolute Neutrophils 11.34 H D-Dimer 2.62 H Sodium 140 Potassium 3.7 Chloride 102 Carbon Dioxide 25 Anion Gap 13.0 BUN 34 H Creatinine 1.5 H GFR Calculation 41 Glucose 108 H Calcium 8.4 L Total Bilirubin 0.5 AST 21 ALT 8 Alkaline Phosphatase 82 Troponin T NT-Pro-B Natriuret Pep 1481.0 H Total Protein 6.6 Albumin 3.4 Globulin 3.2 Albumin/Globulin Ratio 1.1 Procalcitonin TSH A/P Narrative A/P Narrative: A: *CAP, concern for aspiration: *Acute hypoxic respiratory failure: 2/2 above *COPD(?on home O2): *Afib/flutter RVR: on eliquis and BB *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: *Severe deconditioning/debility: Essentially wheelchair bound outside of the house otherwise uses a cane *CAD w/CABG: do not see ASA/statin on home med list *h/o diastolic CHF and RV systolic HF: *Severe Pulm HTN: *Valvular heart dz with Moderate MS/TR: *HTN: on BB/ACEI/norvasc *Hypothyroidism: *h/o Hyponatremia, 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
[2020-11-03] MEDS ORDERED: ONDANSETRON 4 MG/2 ML VIAL IV PRN (10:32)
[2020-11-03] MEDS ORDERED: POTASSIUM CHLORIDE 20 MEQ TABLET PO PRN ×2 (10:32)
[2020-11-03] MEDS ORDERED: LACTULOSE 20 GM/30 ML ORAL.SOL PO PRN (10:32)
[2020-11-03] MEDS ORDERED: MAGNESIUM SULFATE 2 GM/50 ML BAG IV PRN (10:32)
[2020-11-03] MEDS ORDERED: IPRATROPIUM/ALBUTEROL 3 ML AMPUL.NEB NEB PRN (10:32)
[2020-11-03] MEDS ORDERED: SENNOSIDES 1 TABLET PO PRN (10:32)
[2020-11-03] MEDS ORDERED: POTASSIUM CHLORIDE 40 MEQ in DEXTROSE 5% IN WATER 500 ML IV PRN (10:32)
[2020-11-03] MEDS ORDERED: 0.9 % SODIUM CHLORIDE 1,000 ML IV SCH ×2 (10:45→22:11)
--- NOTE | 2020-11-03 11:01 | XRay Report ---
CLINICAL INFORMATION: f/u pna COMPARISON: 11/03/2020 0430 hours FINDINGS: Right mid and lower lung infiltrate has increased in size and density since the film six hours prior. Small left basilar interstitial infiltrate is unchanged. Mild cardiomegaly is stable. Mediastinum and pulmonary vessels are normal. IMPRESSION: Large right mid and lower lung infiltrate progressing considerably in size and density over the past six hours. Small interstitial infiltrate in the left base unchanged Interpreted and Authenticated by: Saúl Renteria 11/03/20
[2020-11-03 11:11] LABS: HDL Cholesterol 39 mg/dL (>40); LDL Cholesterol,Calculated 118 mg/dL (<100); Non-HDL Cholesterol 131 mg/dL (<130); Triglycerides 69 mg/dL (<150)
[2020-11-03] MEDS: AZITHROMYCIN 500 MG in DEXTROSE 5% IN WATER 250 ML IV SCH (12:35)
[2020-11-03 13:28] LABS: Appearance,Urine HAZY (Clear); Bilirubin,Urine Negative (Negative); Color,Urine YELLOW; Culture Indicated,Urine No; Glucose,Urine (UA) Negative (Negative); Ketones,Urine Negative (Negative); Leukocyte Esterase,Urine Negative /ug (Negative); Mucus,Urine FEW /hpf; Nitrate,Urine Negative (Negative); Protein,Urine 30 mg/dL (Negative); Specific Gravity,Urine 1.019 (1.000-1.035); Urine Blood Negative (Negative); Urine RBC 0 /hpf (0-3); Urine Squamous Epithelial Cell < 1 /hpf (0-4); Urine WBC 0 /hpf (0-4); Urobilinogen,Urine Negative
[2020-11-03] MEDS: 0.9 % SODIUM CHLORIDE 10 ML SYRINGE IV SCH ×2 (14:12→20:52)
[2020-11-03] MEDS: METOPROLOL TARTRATE 5 MG/5 ML VIAL IV PRN ×2 (15:04→22:14)
[2020-11-03] MEDS ORDERED: VANCOMYCIN PER PHARMACY IV SCH (15:14)
[2020-11-03] MEDS ORDERED: PIPERACILLIN SODIUM/TAZOBACTAM 3.375 GM in DEXTROSE 5% IN WATER 50 ML IV SCH (15:15)
[2020-11-03] MEDS ORDERED: LORazepam 2 MG/ML VIAL IV ONE (15:34)
[2020-11-03] MEDS ORDERED: hydrOXYzine 50 MG/ML VIAL IM PRN (15:35)
[2020-11-03] MEDS ORDERED: METOPROLOL SUCCINATE 25 MG TAB.XL.24H PO ONE (15:41)
[2020-11-03 15:46] LABS: ABG Methemoglobin 0.3 % (0.4-1.5); VBG Base Excess -6 (-2-3); VBG PCO2 41.8 mmHg (41.0-51.0); VBG PO2 61.2 mmHg (25.0-40.0); VBG Total CO2 21.3 mmol/L (25.0-29.0)
[2020-11-03] MEDS ORDERED: VANCOMYCIN 750 MG in 0.9 % SODIUM CHLORIDE 250 ML IV ONE (16:00)
[2020-11-03] MEDS: PIPERACILLIN SODIUM/TAZOBACTAM 2.25 GM in DEXTROSE 5% IN WATER 50 ML IV SCH ×2 (16:13→20:49)
[2020-11-03] MEDS ORDERED: HALOPERIDOL LACTATE 5 MG/ML VIAL IV ONE (16:24)
[2020-11-03 19:00] LABS: ABG Methemoglobin 0.1 % (0.4-1.5); Total Hemoglobin 13.2 gm/Dl (13.5-16.5); VBG Base Excess -1 (-2-3); VBG HCO3 23.8 mmol/L (24.0-28.0); VBG Oxygen Saturation 83.1 % (40.0-70.0); VBG PCO2 40.9 mmHg (41.0-51.0); VBG PH 7.38 U (7.32-7.42); VBG PO2 53.6 mmHg (25.0-40.0); VBG Total CO2 25.1 mmol/L (25.0-29.0)
[2020-11-03] MEDS: MIRTAZAPINE 15 MG TABLET PO SCH (20:51)
[2020-11-03] MEDS: APIXABAN 5 MG TABLET PO SCH (20:51)
[2020-11-03] MEDS: ATORVASTATIN 20 MG TABLET PO SCH (20:51)
[2020-11-03] MEDS: DOCUSATE SODIUM 100 MG CAPSULE PO SCH (20:52)
[2020-11-03] MEDS ORDERED: OLANZapine 5 MG TABLET PO PRN (21:00)
[2020-11-03] MEDS ORDERED: ATORVASTATIN 10 MG TABLET PO SCH (21:00)
[2020-11-03] MEDS: IPRATROPIUM/ALBUTEROL 3 ML AMPUL.NEB NEB SCH (21:15)
[2020-11-03] MEDS: ACETAMINOPHEN 325 MG TABLET PO PRN (22:15)
[2020-11-04] MEDS: 0.9 % SODIUM CHLORIDE 10 ML SYRINGE IV SCH ×3 (04:49→23:34)
[2020-11-04] MEDS: PIPERACILLIN SODIUM/TAZOBACTAM 2.25 GM in DEXTROSE 5% IN WATER 50 ML IV SCH ×4 (05:22→17:25)
[2020-11-04 06:15] LABS: Basophils # (Auto) 0.01 K/mcL (0.00-0.20); Basophils % (Auto) 0.2 % (0.0-2.0); Eosinophils # (Auto) 0 K/mcL (0.00-0.70); Eosinophils % (Auto) 0 % (0.0-7.0); Hematocrit 38.2 % (41.0-55.0); Hemoglobin 12.1 g/dL (13.5-16.5); Lymphocytes # (Auto) 0.54 K/mcL (1.50-4.80); Mean Cell Volume 97.4 fL (80.0-100.0); Mean Corpuscular HGB Conc 31.7 g/dL (31.0-36.0); Mean Platelet Volume 10.8 fL (7.4-10.4); Monocytes # (Auto) 0.28 K/mcL (0.10-0.90); Monocytes % (Auto) 4.7 % (1.0-12.0); Neutrophils % (Auto) 86.1 % (38.0-78.0); Platelet Count 235 K/mcL (140-440); RBC 3.92 M/mcL (4.50-5.90); Red Cell Distribution Width 13.3 % (11.5-14.5)
[2020-11-04] MEDS: IPRATROPIUM/ALBUTEROL 3 ML AMPUL.NEB NEB SCH ×3 (06:43→21:38)
[2020-11-04 06:45] LABS: ALT/SGPT 9 U/L (<40); AST/SGOT 26 U/L (<40); Albumin 2.9 gm/dL (3.2-5.2); Albumin/Globulin Ratio 1.1 (1.0-2.3); Alkaline Phosphatase 60 U/L (39-117); Bilirubin,Direct < 0.2 mg/dL (<0.3); Bilirubin,Total 0.3 mg/dL (0.1-1.0); Blood Urea Nitrogen 38 mg/dL (8-23); Calcium 7.8 mg/dL (8.6-10.4); Carbon Dioxide 24 mmol/L (22-30); Chloride 105 mmol/L (96-108); Globulin 2.6 gm/dL (2.2-3.7); Glomerular Filtration Rate 49; Glucose 110 mg/dL (70-105); Lactate Dehydrogenase 284 U/L (135-225); Phosphorous 3.8 mg/dL (2.5-4.5); Triglycerides 61 mg/dL (<150); Uric Acid 5.8 mg/dL (2.5-8.0)
--- NOTE | 2020-11-04 07:40 | Internal Med Progress Note ---
SUBJECTIVE Subjective Patient information: Note initiated : 11/04/20 at 7:33 am Service Date, if different from initiated Date: [] Patient: Lincoln Parks 85 y/o M admitted on 11/03/20 for breathing difficulty. Chief Complaint: [] Interval history: History of present illness: Mr. Parks is a 85 year old M Presents from the [facility] brought in by EMS because he was short of breath and he was hypoxic. He is 75% on arrival. Even nebulizers and supplemental oxygen. His blood pressure initially was 84/48 and was given 250 cc bolus of fluid which brought him up into the 1 teens and has had good pressure since then. He was on a nonrebreather 10 L in the ER and in the ICU he is currently on 8 L high flow nasal cannula. Covid test is negative. Chest x-ray shows moderate right infiltrate and some patchy on the left. Had a fever and elevated white blood cell count. He had elevated pro calcitonin. His creatinine was elevated above baseline. Patient states he has a productive cough of yellow sputum which he thinks is may be worse than baseline. He has shortness of breath but he says that is normal for him. Family reports that some of his sputum had trace blood in it. Is also feet found to be in A. fib RVR with a rate of 130 and was given Lopressor IV with good results. 1/5 Feeling little better today. Has productive cough. Shortness of breath present but improved from yesterday. Was on BiPAP yesterday evening and all night. He is on oxygen mask currently. Was febrile in the middle of the night. Pending blood and sputum cultures. Leukocytosis resolved. Calcitonin elevated. Review of Systems: denies headache/fever/chills/nausea/vomiting/chest or abdominal pain/diarrhea. Otherwise see above. Constitutional Vitals: Vital Signs Temp Pulse Resp BP Pulse Ox 98.6 F 107 H 31 H 134/100 89 L 11/04/20 02:02 11/04/20 06:43 11/04/20 06:43 11/04/20 06:00 11/04/20 07:14 Period Temp Pulse Resp BP Sys/Ortiz Pulse Ox Last 24 Hr 98.6 F-104.2 F 87-133 18-43 60-181/40-152 85-98 Intake and Output 01/02/1811/04/20 11/04/20 21:59 05:59 13:59 Intake Total 410 1150 Output Total 2 228 Balance 408 922 Weight 50.485 kg Intake & Output: Intake & Output 11/03/20 11/04/20 11/04/20 21:59 05:59 13:59 Intake Total 410 1150 Output Total 2 228 Balance 408 922 Weight 50.485 kg Intake: IV 350 1050 Sodium Chloride 0.9% 1,000 ml @ 1000 75 mls/hr IV .[id number] [facility] Rx#: [id number] Zosyn 2.25 gm In Dextrose 5% in 100 50 Water 50 ml @ 100 mls/hr IV Q6H [facility] Rx#:[id number] Vancomycin 750 mg In Sodium 250 Chloride 0.9% 250 ml @ 250 mls/ hr IV ONCE ONE Rx#:[id number] Oral 60 100 Output: Void Amount 225 # of times incontinent of urine 2 3 Stool 0 Other: Urine Appearance Clear Clear Urine Color Bright Yellow Dark Yellow Urine Odor Normal Normal # Bowel Movements 0 Exam: General: Alert, Awake, No acute Distress, cachectic Eyes/N/T: EOMI, Head/Neck: neck supple, CV: RRR, No murmurs, Pulm: rhonchi Right, no wheezing Abd: soft, nontender, +BS x4 Ext: no clubbing/cyanosis/edema Neuro: Alert, no focal deficits, moves all extremities, Skin: warm/dry OBJ DATA Labs CBC & Chem 7: 11/04/20 04:52 11/04/20 04:51 Labs: Abnormal Lab Results 11/04/20 11/04/20 11/04/20 04:52 04:52 04:51 WBC RBC 3.92 L Hgb 12.1 L Hct 38.2 L MPV 10.8 H Neut % (Auto) 86.1 H Lymph % (Auto) 9.0 L Lymph # (Auto) 0.54 L Absolute Neutrophils D-Dimer ABG Methemoglobin VBG pH VBG pCO2 VBG pO2 VBG HCO3 VBG Total CO2 VBG O2 Saturation VBG Base Excess Carboxyhemoglobin Total Hemoglobin BUN 38 H Creatinine 1.3 H Glucose 110 H Calcium 7.8 L Lactate Dehydrogenase 284 H NT-Pro-B Natriuret Pep Total Protein 5.5 L Albumin 2.9 L LDL Cholesterol, Calc Non-HDL Cholesterol HDL Cholesterol Procalcitonin 28.89 H Urine Appearance Urine Protein Urine Mucus 11/03/20 11/03/20 11/03/20 18:34 15:22 12:23 WBC RBC Hgb Hct MPV Neut % (Auto) Lymph % (Auto) Lymph # (Auto) Absolute Neutrophils D-Dimer ABG Methemoglobin 0.1 L 0.3 L VBG pH 7.30 L VBG pCO2 40.9 L VBG pO2 53.6 H 61.2 H VBG HCO3 23.8 L 20.0 L VBG Total CO2 21.3 L VBG O2 Saturation 83.1 H 82.0 H VBG Base Excess -6 L Carboxyhemoglobin 3.0 H 8.4 H Total Hemoglobin 13.2 L BUN Creatinine Glucose Calcium Lactate Dehydrogenase NT-Pro-B Natriuret Pep Total Protein Albumin LDL Cholesterol, Calc Non-HDL Cholesterol HDL Cholesterol Procalcitonin Urine Appearance Hazy A Urine Protein 30 A Urine Mucus Few A 11/03/20 11/03/20 11/03/20 04:46 04:46 04:46 WBC RBC Hgb Hct MPV Neut % (Auto) Lymph % (Auto) Lymph # (Auto) Absolute Neutrophils D-Dimer ABG Methemoglobin VBG pH VBG pCO2 VBG pO2 VBG HCO3 VBG Total CO2 VBG O2 Saturation VBG Base Excess Carboxyhemoglobin Total Hemoglobin BUN 34 H Creatinine 1.5 H Glucose 108 H Calcium 8.4 L Lactate Dehydrogenase NT-Pro-B Natriuret Pep 1481.0 H Total Protein Albumin LDL Cholesterol, Calc 118 H Non-HDL Cholesterol 131 H HDL Cholesterol 39 L Procalcitonin 1.84 H Urine Appearance Urine Protein Urine Mucus 11/03/20 11/03/20 04:46 04:46 WBC 12.4 H RBC 4.32 L Hgb 13.3 L Hct 40.9 L MPV 10.6 H Neut % (Auto) 91.7 H Lymph % (Auto) 2.8 L Lymph # (Auto) 0.35 L Absolute Neutrophils 11.34 H D-Dimer 2.62 H ABG Methemoglobin VBG pH VBG pCO2 VBG pO2 VBG HCO3 VBG Total CO2 VBG O2 Saturation VBG Base Excess Carboxyhemoglobin Total Hemoglobin BUN Creatinine Glucose Calcium Lactate Dehydrogenase NT-Pro-B Natriuret Pep Total Protein Albumin LDL Cholesterol, Calc Non-HDL Cholesterol HDL Cholesterol Procalcitonin Urine Appearance Urine Protein Urine Mucus Meds: Medications Acetaminophen (Tylenol) 650 mg PO Q6HP PRN PRN Reason: PAIN/FEVER > 101 Last Admin: 11/03/20 22:15 Dose: 650 mg Documented by: Albuterol/Ipratropium (Duoneb) 3 ml NEB Q4HP PRN PRN Reason: Shortness Of Breath Last Admin: 11/03/20 15:20 Dose: 3 ml Documented by: Albuterol/Ipratropium (Duoneb) 3 ml NEB BID [facility] Last Admin: 11/04/20 06:43 Dose: 3 ml Documented by: Apixaban (Eliquis) 2.5 mg PO BID [facility] Last Admin: 11/03/20 20:51 Dose: 2.5 mg Documented by: Atorvastatin Calcium (Lipitor) 20 mg PO HS [facility] Last Admin: 11/03/20 20:51 Dose: 20 mg Documented by: Docusate Sodium (Colace) 100 mg PO BID [facility] Last Admin: 11/03/20 20:52 Dose: 100 mg Documented by: Hydroxyzine HCl (Vistaril) 25 mg IM Q6HP PRN PRN Reason: Anxiety/agitation Potassium Chloride 40 meq/ (Dextrose) 520 mls @ 130 mls/hr IV UD PRN PRN Reason: Potassium < 3 Magnesium Sulfate (Magnesium Sulfate) 2 gm in 50 mls @ 50 mls/hr IV UD PRN PRN Reason: Magnesium </= 1.6 Azithromycin 500 mg/ Dextrose 250 mls @ 250 mls/hr IV DAILY@1000 [facility]; Protocol Stop: 11/05/20 10:59 Last Infusion: 11/03/20 13:35 Dose: Infused Documented by: Piperacillin Sod/Tazobactam (Sod 2.25 gm/ Dextrose) 50 mls @ 100 mls/hr IV Q6H [facility] Last Admin: 11/04/20 05:22 Dose: 100 mls/hr Documented by: Sodium Chloride (Sodium Chloride 0.9%) 1,000 mls @ 50 mls/hr IV .Q20H [facility] Stop: 11/04/20 18:10 Last Admin: 11/04/20 04:53 Dose: 50 mls/hr Documented by: Lactulose (Cephulac) 20 gm PO DAILYP PRN PRN Reason: Constipation Levothyroxine Sodium (Synthroid) 75 mcg PO ACB [facility] Metoprolol Succinate (Toprol Xl) 25 mg PO DAILY [facility] Metoprolol Tartrate (Lopressor) 5 mg IV Q2HP PRN PRN Reason: Tachyarrhythmias HR>110 Last Admin: 11/03/20 22:14 Dose: 5 mg Documented by: Mirtazapine (Remeron) 7.5 mg PO HS [facility] Last Admin: 11/03/20 20:51 Dose: 7.5 mg Documented by: Olanzapine (Zyprexa) 5 mg PO HSP PRN PRN Reason: Agitation Ondansetron HCl (Zofran) 4 mg IV Q4HP PRN PRN Reason: Nausea And Vomiting Potassium Chloride (Kdur) 40 meq PO UD PRN PRN Reason: Potssium is 3-3.5 Potassium Chloride (Kdur) 40 meq PO UD PRN PRN Reason: Potassium < 3 Senna (Senokot) 2 tab PO DAILYP PRN PRN Reason: Constipation Sodium Chloride (Saline Flush) 10 ml IV Q8 [facility] Last Admin: 11/04/20 04:49 Dose: Not Given Documented by: Vancomycin HCl (Vancomycin Per Pharmacy) 1 order IV UD [facility]; Protocol ABG Interpretation ABG results: 11/03/20 11/03/20 15:22 18:34 ABG Methemoglobin 0.3 L 0.1 L VBG pH 7.30 L 7.38 VBG pCO2 41.8 40.9 L VBG pO2 61.2 H 53.6 H VBG HCO3 20.0 L 23.8 L VBG Total CO2 21.3 L 25.1 VBG O2 Saturation 82.0 H 83.1 H VBG Base Excess -6 L -1 A/P Narrative A/P Narrative: A: *CAP, concern for aspiration: -strep/rvp/covid neg *Sepsis: -febrile o/n, leukocytosis resolved, elevated pct *Hypotension: resolved with IVF's *Acute hypoxic respiratory failure: 2/2 above -on Bipap o/n, now on oxymask *COPD(has been on 2L O2@facility for last several weeks): *Afib/flutter RVR: on eliquis and BB *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: -improvement *Severe protein calorie malnutrition/cachexia pulmonary: *Severe deconditioning/debility: Essentially wheelchair bound outside of the house otherwise uses a cane *CAD w/CABG: do not see ASA/statin on home med list *h/o diastolic CHF and RV systolic HF: *Severe Pulm HTN: *Valvular heart dz with Moderate MS/TR: *HTN: on BB/ACEI/norvasc *Hypothyroidism: *h/o Hyponatremia, 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
[2020-11-04] MEDS: LEVOTHYROXINE 75 MCG TABLET PO SCH (07:45)
[2020-11-04] MEDS ORDERED: cefTRIAXone 2 GM in DEXTROSE 5% IN WATER 50 ML IV SCH (09:00)
[2020-11-04] MEDS ORDERED: METOPROLOL SUCCINATE 25 MG TAB.XL.24H PO SCH (09:00)
[2020-11-04 09:06] LABS: Vancomycin,Random 5.3 ug/mL
[2020-11-04] MEDS: METOPROLOL TARTRATE 5 MG/5 ML VIAL IV PRN ×4 (09:15→15:50)
[2020-11-04] MEDS: AZITHROMYCIN 500 MG in DEXTROSE 5% IN WATER 250 ML IV SCH (09:30)
[2020-11-04] MEDS ORDERED: VANCOMYCIN 1,000 MG in 0.9 % SODIUM CHLORIDE 250 ML IV ONE (10:00)
[2020-11-04] MEDS: DOCUSATE SODIUM 100 MG CAPSULE PO SCH ×2 (10:31→23:55)
[2020-11-04] MEDS: APIXABAN 5 MG TABLET PO SCH ×2 (10:32→23:55)
[2020-11-04] MEDS: hydrOXYzine 50 MG/ML VIAL IM PRN (13:01)
--- NOTE | 2020-11-04 17:45 | Cat Scan Report ---
CLINICAL INFORMATION: Right lung infiltrate COMPARISON: None TECHNIQUE: 0.625 mm axial slices were obtained from the lung apices through the bases without intravenous contrast. 2.5 mm Sagittal, coronal and axial reformatted images were processed and reviewed at bone, lung and soft tissue windows. 7 mm axial MIP images were also reconstructed to optimize pulmonary nodule detection.The exam was performed using radiation dose optimization techniques including, but not limited to, automated exposure control, adjustment of the mA and/or kV according to patient size and use of iterative reconstruction technique. FINDINGS: Pulmonary parenchymal windows severe centrilobular emphysema changes featuring chronic bronchitis with elevated lung volumes and wall thickening/ dilatation of bronchi. There are multiple bullae replacing the upper lobe parenchyma with numerous bullae throughout the right middle and both lower lobe periphery. A large alveolar infiltrate dominates the posterior right upper and lower lobes. Moderate patchy infiltrates are seen in the anterior segment right upper lobe and the right middle lobe. A small patchy infiltrate is also seen in the posterior left lower lobe. There is a 5 cm region of pleural fat as invaginated the superior left major fissure a 2 cm focus of pleural fat fat in the mid major fissure. Moderate right and tiny left pleural effusions appreciated. The mediastinal windows show mild enlargement of the central pulmonary arteries: main pulmonary diameter 3.3 cm. This is suggestive of pulmonary hypertension. The heart is moderately enlarged with calcific plaque in the coronary arteries. There is also calcification of both mitral and aortic valves. Small hiatal hernia is noted. Multiple moderately enlarged lymph nodes are seen in the lower mediastinal region including both tino, subcarinal, AP window and lower paratracheal region. These range up to 2 cm. They're likely represent reactive nodes related to pneumonia. Bone windows show severe degenerative change in the thoracic spine with kyphosis in the upper thoracic spine. The superior abdomen shows no abnormality. IMPRESSION: 1. Large alveolar infiltrate throughout the posterior right upper and lower lobe. Moderate patchy infiltrates in the right middle and anterior segment of the right upper lobe. Smaller patchy infiltrate seen in the posterior left lower lobe. Moderate right and small left pleural effusions noted. Aspiration or multifocal infection should be considered. 2. Severe centrilobular emphysema. Mild enlargement central pulmonary arteries suggests pulmonary hypertension 3. Moderate mediastinal and hilar adenopathy almost certainly represent benign reactive adenopathy related to the pneumonia. 4. Moderate cardiomegaly. Sternotomy/bypass surgery noted there is also calcification aortic and mitral valves. Interpreted and Authenticated by: Saúl Renteria 11/04/20
[2020-11-04] MEDS ORDERED: ALBUMIN HUMAN 12.5 GM/50 ML BAG IV ONE (23:12)
[2020-11-04] MEDS ORDERED: ALBUMIN HUMAN 50 ML IV ONE (23:22)
[2020-11-04] MEDS: METOPROLOL TARTRATE 25 MG TABLET PO SCH (23:34)
[2020-11-04] MEDS: ATORVASTATIN 20 MG TABLET PO SCH (23:55)
[2020-11-04] MEDS: MIRTAZAPINE 15 MG TABLET PO SCH (23:56)
[2020-11-05] MEDS: PIPERACILLIN SODIUM/TAZOBACTAM 2.25 GM in DEXTROSE 5% IN WATER 50 ML IV SCH ×3 (02:02→11:54)
[2020-11-05] MEDS: METOPROLOL TARTRATE 5 MG/5 ML VIAL IV PRN ×2 (05:26→08:48)
[2020-11-05] MEDS: 0.9 % SODIUM CHLORIDE 10 ML SYRINGE IV SCH ×3 (05:41→21:14)
[2020-11-05] MEDS: IPRATROPIUM/ALBUTEROL 3 ML AMPUL.NEB NEB SCH ×2 (06:43→08:09)
[2020-11-05] MEDS: LEVOTHYROXINE 75 MCG TABLET PO SCH (06:58)
[2020-11-05 07:09] LABS: Blood Urea Nitrogen 44 mg/dL (8-23); Calcium 8.4 mg/dL (8.6-10.4); Carbon Dioxide 24 mmol/L (22-30); Chloride 104 mmol/L (96-108); Glomerular Filtration Rate 49; Glucose 93 mg/dL (70-105)
--- NOTE | 2020-11-05 07:33 | Internal Med Progress Note ---
SUBJECTIVE Subjective Patient information: Note initiated : 11/05/20 at 7:28 am Service Date, if different from initiated Date: [] Patient: Lincoln Parks a 85 y/o M admitted on 11/03/20 for breathing difficulty. Chief Complaint: [] Interval history: History of present illness: Mr. Parks is a 85 year old M Presents from the [facility] brought in by EMS because he was short of breath and he was hypoxic. He is 75% on arrival. Even nebulizers and supplemental oxygen. His blood pressure initially was 84/48 and was given 250 cc bolus of fluid which brought him up into the 1 teens and has had good pressure since then. He was on a nonrebreather 10 L in the ER and in the ICU he is currently on 8 L high flow nasal cannula. Covid test is negative. Chest x-ray shows moderate right infiltrate and some patchy on the left. Had a fever and elevated white blood cell count. He had elevated pro calcitonin. His creatinine was elevated above baseline. Patient states he has a productive cough of yellow sputum which he thinks is may be worse than baseline. He has shortness of breath but he says that is normal for him. Family reports that some of his sputum had trace blood in it. Is also feet found to be in A. fib RVR with a rate of 130 and was given Lopressor IV with good results. 11/04 Feeling little better today. Has productive cough. Shortness of breath present but improved from yesterday. Was on BiPAP yesterday evening and all night. He is on oxygen mask currently. Was febrile in the middle of the night. Pending blood and sputum cultures. Leukocytosis resolved. Calcitonin elevated. 11/05 Was off BiPAP yesterday morning for a while but then had to go back on and was on BiPAP last night ,on 70%. was placed on high flow this morning for meds but desatted quickly. Has been talking with the daughter past couple days but is tenuous state. Will need to have a care conference likely as he is not making any improvement. He did quite poorly with speech therapy evaluation yesterday. He has episodes of confusion. Review of Systems: denies headache/fever/chills/nausea/vomiting/chest or abdominal pain/diarrhea. Otherwise see above. Constitutional Vitals: Vital Signs Temp Pulse Resp BP Pulse Ox 99.8 F H 115 H 30 H 104/72 96 11/05/20 04:00 11/05/20 06:44 11/05/20 06:44 11/05/20 06:01 11/05/20 06:44 Period Temp Pulse Resp BP Sys/Ortiz Pulse Ox Last 24 Hr 97.8 F-99.8 F 96-140 24-43 78-252/51-230 83-100 Intake and Output 11/04/20 11/05/20 11/05/20 21:59 05:59 13:59 Intake Total 170 100 50 Output Total 155 1 151 Balance 15 99 -101 Weight 53.479 kg Intake & Output: Intake & Output 11/04/20 11/05/20 11/05/20 21:59 05:59 13:59 Intake Total 170 100 50 Output Total 155 1 151 Balance 15 99 -101 Weight 53.479 kg Intake: IV 50 100 50 Zosyn 2.25 gm In Dextrose 5% in 50 50 50 Water 50 ml @ 100 mls/hr IV Q6H [facility] Rx#:[id number] Oral 120 Output: Void Amount 150 150 # of times incontinent of urine 5 1 1 Other: Nourishment/Supplement name Ensure Urine Appearance Clear Clear Clear Urine Color Bright Yellow Bright Yellow Bright Yellow Urine Odor Normal Normal Exam: General: Alert, Awake, No acute Distress, cachectic Eyes/N/T: EOMI, Head/Neck: neck supple, CV: RRR, No murmurs, Pulm: rhonchi Right, no wheezing Abd: soft, nontender, +BS x4 Ext: no clubbing/cyanosis/edema Neuro: Alert, no focal deficits, moves all extremities, Skin: warm/dry OBJ DATA Labs CBC & Chem 7: 11/04/20 04:52 11/05/20 05:11 Labs: Abnormal Lab Results 11/05/20 11/05/20 11/04/20 05:11 05:11 04:52 WBC RBC 3.92 L Hgb 12.1 L Hct 38.2 L MPV 10.8 H Neut % (Auto) 86.1 H Lymph % (Auto) 9.0 L Lymph # (Auto) 0.54 L Absolute Neutrophils D-Dimer ABG Methemoglobin VBG pH VBG pCO2 VBG pO2 VBG HCO3 VBG Total CO2 VBG O2 Saturation VBG Base Excess Carboxyhemoglobin Total Hemoglobin BUN 44 H Creatinine 1.3 H Glucose Calcium 8.4 L Lactate Dehydrogenase NT-Pro-B Natriuret Pep Total Protein Albumin LDL Cholesterol, Calc Non-HDL Cholesterol HDL Cholesterol Procalcitonin 21.67 H Urine Appearance Urine Protein Urine Mucus 11/04/20 11/04/20 11/03/20 04:52 04:51 18:34 WBC RBC Hgb Hct MPV Neut % (Auto) Lymph % (Auto) Lymph # (Auto) Absolute Neutrophils D-Dimer ABG Methemoglobin 0.1 L VBG pH VBG pCO2 40.9 L VBG pO2 53.6 H VBG HCO3 23.8 L VBG Total CO2 VBG O2 Saturation 83.1 H VBG Base Excess Carboxyhemoglobin 3.0 H Total Hemoglobin 13.2 L BUN 38 H Creatinine 1.3 H Glucose 110 H Calcium 7.8 L Lactate Dehydrogenase 284 H NT-Pro-B Natriuret Pep Total Protein 5.5 L Albumin 2.9 L LDL Cholesterol, Calc Non-HDL Cholesterol HDL Cholesterol Procalcitonin 28.89 H Urine Appearance Urine Protein Urine Mucus 11/03/20 11/03/20 11/03/20 15:22 12:23 04:46 WBC RBC Hgb Hct MPV Neut % (Auto) Lymph % (Auto) Lymph # (Auto) Absolute Neutrophils D-Dimer ABG Methemoglobin 0.3 L VBG pH 7.30 L VBG pCO2 VBG pO2 61.2 H VBG HCO3 20.0 L VBG Total CO2 21.3 L VBG O2 Saturation 82.0 H VBG Base Excess -6 L Carboxyhemoglobin 8.4 H Total Hemoglobin BUN Creatinine Glucose Calcium Lactate Dehydrogenase NT-Pro-B Natriuret Pep Total Protein Albumin LDL Cholesterol, Calc 118 H Non-HDL Cholesterol 131 H HDL Cholesterol 39 L Procalcitonin Urine Appearance Hazy A Urine Protein 30 A Urine Mucus Few A 11/03/20 11/03/20 11/03/20 04:46 04:46 04:46 WBC RBC Hgb Hct MPV Neut % (Auto) Lymph % (Auto) Lymph # (Auto) Absolute Neutrophils D-Dimer 2.62 H ABG Methemoglobin VBG pH VBG pCO2 VBG pO2 VBG HCO3 VBG Total CO2 VBG O2 Saturation VBG Base Excess Carboxyhemoglobin Total Hemoglobin BUN 34 H Creatinine 1.5 H Glucose 108 H Calcium 8.4 L Lactate Dehydrogenase NT-Pro-B Natriuret Pep 1481.0 H Total Protein Albumin LDL Cholesterol, Calc Non-HDL Cholesterol HDL Cholesterol Procalcitonin 1.84 H Urine Appearance Urine Protein Urine Mucus 11/03/20 04:46 WBC 12.4 H RBC 4.32 L Hgb 13.3 L Hct 40.9 L MPV 10.6 H Neut % (Auto) 91.7 H Lymph % (Auto) 2.8 L Lymph # (Auto) 0.35 L Absolute Neutrophils 11.34 H D-Dimer ABG Methemoglobin VBG pH VBG pCO2 VBG pO2 VBG HCO3 VBG Total CO2 VBG O2 Saturation VBG Base Excess Carboxyhemoglobin Total Hemoglobin BUN Creatinine Glucose Calcium Lactate Dehydrogenase NT-Pro-B Natriuret Pep Total Protein Albumin LDL Cholesterol, Calc Non-HDL Cholesterol HDL Cholesterol Procalcitonin Urine Appearance Urine Protein Urine Mucus Meds: Medications Acetaminophen (Tylenol) 650 mg PO Q6HP PRN PRN Reason: PAIN/FEVER > 101 Last Admin: 11/03/20 22:15 Dose: 650 mg Documented by: Albuterol/Ipratropium (Duoneb) 3 ml NEB Q4HP PRN PRN Reason: Shortness Of Breath Last Admin: 11/03/20 15:20 Dose: 3 ml Documented by: Albuterol/Ipratropium (Duoneb) 3 ml NEB BID [facility] Last Admin: 11/05/20 06:43 Dose: 3 ml Documented by: Apixaban (Eliquis) 2.5 mg PO BID [facility] Last Admin: 11/04/20 23:55 Dose: 2.5 mg Documented by: Atorvastatin Calcium (Lipitor) 20 mg PO [facility] Last Admin: 11/04/20 23:55 Dose: 20 mg Documented by: Docusate Sodium (Colace) 100 mg PO BID [facility] Last Admin: 11/04/20 23:55 Dose: 100 mg Documented by: Hydroxyzine HCl (Vistaril) 25 mg IM Q6HP PRN PRN Reason: Anxiety/agitation Last Admin: 11/04/20 13:01 Dose: 25 mg Documented by: Potassium Chloride 40 meq/ (Dextrose) 520 mls @ 130 mls/hr IV UD PRN PRN Reason: Potassium < 3 Magnesium Sulfate (Magnesium Sulfate) 2 gm in 50 mls @ 50 mls/hr IV UD PRN PRN Reason: Magnesium </= 1.6 Azithromycin 500 mg/ Dextrose 250 mls @ 250 mls/hr IV DAILY@1000 [facility]; Protocol Stop: 11/05/20 10:59 Last Infusion: 11/04/20 10:32 Dose: Infused Documented by: Piperacillin Sod/Tazobactam (Sod 2.25 gm/ Dextrose) 50 mls @ 100 mls/hr IV Q6H [facility] Last Infusion: 11/05/20 06:15 Dose: Infused Documented by: Lactulose (Cephulac) 20 gm PO DAILYP PRN PRN Reason: Constipation Levothyroxine Sodium (Synthroid) 75 mcg PO ACB [facility] Last Admin: 11/05/20 06:58 Dose: 75 mcg Documented by: Metoprolol Tartrate (Lopressor) 5 mg IV Q2HP PRN PRN Reason: Tachyarrhythmias HR>110 Last Admin: 11/05/20 05:26 Dose: 5 mg Documented by: Metoprolol Tartrate (Lopressor) 25 mg PO BID [facility] Last Admin: 11/04/20 23:34 Dose: Not Given Documented by: Mirtazapine (Remeron) 7.5 mg PO HS [facility] Last Admin: 11/04/20 23:56 Dose: 7.5 mg Documented by: Olanzapine (Zyprexa) 5 mg PO HSP PRN PRN Reason: Agitation Ondansetron HCl (Zofran) 4 mg IV Q4HP PRN PRN Reason: Nausea And Vomiting Potassium Chloride (Kdur) 40 meq PO UD PRN PRN Reason: Potssium is 3-3.5 Potassium Chloride (Kdur) 40 meq PO UD PRN PRN Reason: Potassium < 3 Senna (Senokot) 2 tab PO DAILYP PRN PRN Reason: Constipation Sodium Chloride (Saline Flush) 10 ml IV Q8 [facility] Last Admin: 11/05/20 05:41 Dose: 10 ml Documented by: ABG Interpretation ABG results: 11/03/20 11/03/20 15:22 18:34 ABG Methemoglobin 0.3 L 0.1 L VBG pH 7.30 L 7.38 VBG pCO2 41.8 40.9 L VBG pO2 61.2 H 53.6 H VBG HCO3 20.0 L 23.8 L VBG Total CO2 21.3 L 25.1 VBG O2 Saturation 82.0 H 83.1 H VBG Base Excess -6 L -1 A/P Narrative A/P Narrative: A: *CAP, most likely Aspiration: -strep/rvp/covid neg; SC neg -CT showing severe emphysema and infiltrate throughout right lung *Sepsis: -febrile o/n, leukocytosis resolved, elevated pct *Hypotension: resolved with IVF's *Acute hypoxic respiratory failure: 2/2 above -off/on Bipap, currently on at 70% fio2 -not making any meaningful recovery *COPD(has been on 2L O2@facility for last several weeks): *Afib/flutter RVR: on eliquis and BB *Oropharyngeal Dysphagia, moderate: aspirating on ST exam *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: -stable *Severe protein calorie malnutrition/cachexia pulmonary: *Severe deconditioning/debility: Essentially wheelchair bound outside of the house otherwise uses a cane *CAD w/CABG: do not see ASA/statin on home med list *h/o diastolic CHF and RV systolic HF: *Severe Pulm HTN: *Valvular heart dz with Moderate MS/TR: *HTN: on BB/ACEI/norvasc *Hypothyroidism: *h/o Hyponatremia, 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
[2020-11-05] MEDS: hydrOXYzine 50 MG/ML VIAL IM PRN (07:49)
[2020-11-05] MEDS: APIXABAN 5 MG TABLET PO SCH (07:49)
[2020-11-05] MEDS: DOCUSATE SODIUM 100 MG CAPSULE PO SCH (07:49)
[2020-11-05] MEDS: METOPROLOL TARTRATE 25 MG TABLET PO SCH (07:50)
[2020-11-05] MEDS: ACETAMINOPHEN 325 MG TABLET PO PRN (07:50)
--- NOTE | 2020-11-05 09:13 | XRay Report ---
CLINICAL INFORMATION: hypoxia COMPARISON: 11/03/2020 FINDINGS: Heart size, mediastinum and pulmonary vessels are normal. Large right mid and lower lung infiltrate shows increasing size and consolidation. Moderate right pleural effusion is also worsened. Smaller infiltrate in the left base is unchanged. IMPRESSION: Large right mid and lower lung infiltrate progressing. Moderate pleural effusion also progressing Smaller left basilar infiltrate - stable Interpreted and Authenticated by: Saúl Renteria 11/05/20
[2020-11-05] MEDS: AZITHROMYCIN 500 MG in DEXTROSE 5% IN WATER 250 ML IV SCH (10:00)
[2020-11-05] MEDS ORDERED: morphine 2 MG/ML VIAL IV PRN (11:38)
[2020-11-05] MEDS ORDERED: morphine 4 MG/ML VIAL NEB PRN (11:56)
[2020-11-05] MEDS ORDERED: ONDANSETRON 4 MG/2 ML VIAL IV PRN (11:56)
[2020-11-05] MEDS ORDERED: LORazepam 2 MG/ML VIAL IV PRN (11:56)
[2020-11-05] MEDS ORDERED: ONDANSETRON 4 MG ODT TABLET SL PRN (11:56)
[2020-11-05] MEDS ORDERED: LACTOPEROXI/GLUC OXID/POT THIO 1 EACH GEL..EA. TOPICAL PRN (11:56)
[2020-11-05] MEDS: morphine 4 MG/ML VIAL IV PRN ×7 (14:06→23:34)
[2020-11-05] MEDS: LORazepam 2 MG/ML VIAL IV PRN ×3 (19:49→23:35)
[2020-11-06] MEDS: morphine 4 MG/ML VIAL IV PRN ×3 (01:55→08:47)
[2020-11-06] MEDS: LORazepam 2 MG/ML VIAL IV PRN ×3 (01:55→08:46)
[2020-11-06] MEDS: 0.9 % SODIUM CHLORIDE 10 ML SYRINGE IV SCH (05:17)
--- NOTE | 2020-11-06 07:29 | Internal Med Progress Note ---
SUBJECTIVE Subjective Patient information: Note initiated : 11/06/20 at 7:28 am Service Date, if different from initiated Date: [] Patient: Lincoln Parks a 85 y/o M admitted on 11/03/20 for breathing difficulty. Chief Complaint: [] Interval history: History of present illness: Mr. Parks is a 85 year old M Presents from the [facility] brought in by EMS because he was short of breath and he was hypoxic. He is 75% on arrival. Even nebulizers and supplemental oxygen. His blood pressure initially was 84/48 and was given 250 cc bolus of fluid which brought him up into the 1 teens and has had good pressure since then. He was on a nonrebreather 10 L in the ER and in the ICU he is currently on 8 L high flow nasal cannula. Covid test is negative. Chest x-ray shows moderate right infiltrate and some patchy on the left. Had a fever and elevated white blood cell count. He had elevated pro calcitonin. His creatinine was elevated above baseline. Patient states he has a productive cough of yellow sputum which he thinks is may be worse than baseline. He has shortness of breath but he says that is normal for him. Family reports that some of his sputum had trace blood in it. Is also feet found to be in A. fib RVR with a rate of 130 and was given Lopressor IV with good results. 11/04 Feeling little better today. Has productive cough. Shortness of breath present but improved from yesterday. Was on BiPAP yesterday evening and all night. He is on oxygen mask currently. Was febrile in the middle of the night. Pending blood and sputum cultures. Leukocytosis resolved. Calcitonin elevated. 11/05 Was off BiPAP yesterday morning for a while but then had to go back on and was on BiPAP last night ,on 70%. was placed on high flow this morning for meds but desatted quickly. Has been talking with the daughter past couple days but is tenuous state. Will need to have a care conference likely as he is not making any improvement. He did quite poorly with speech therapy evaluation yesterday. He has episodes of confusion. We had a family care conference with all 3 daughters which included the POA. We discussed his current condition and his failure to make any meaningful recovery, he has become dependent on the BiPAP at this time. Discussed his other significant comorbidities. During this discussion with family it was decided to transition to comfort focus. Once his other 2 daughters are able to come in and see him then Vahid will let us know that they are ready for complete comfort care at that time. 11/06 Patient transition to comfort care last night. Unresponsive. Breathing pattern change. Constitutional Vitals: Vital Signs Temp Pulse Resp BP Pulse Ox 99.3 F H 95 H 26 H 118/95 96 11/05/20 19:51 11/05/20 10:33 11/05/20 19:51 11/05/20 19:51 11/05/20 19:51 Period Temp Pulse Resp BP Sys/Ortiz Pulse Ox Last 24 Hr 99.3 F-99.5 F 95 26-39 107-121/67-95 92-98 Intake and Output 11/05/20 11/06/20 11/06/20 21:59 05:59 13:59 Output Total 650 Balance -650 Intake & Output: Intake & Output 11/05/20 11/06/20 11/06/20 21:59 05:59 13:59 Output Total 650 Balance -650 Output: Urine Catheter Amount 650 Other: Urine Appearance Clear Uretheral (Ponce) Clear Urine Color Dark Yellow Uretheral (Ponce) Dark Yellow Exam: General: No acute Distress, cachectic Eyes/N/T: EOMI, Head/Neck: neck supple, CV: RRR, No murmurs, Pulm: rhonchi Right, no wheezing, end of life breathing pattern Abd: soft, nontender, +BS x4 Ext: no clubbing/cyanosis/edema Neuro: unresponsive Skin: warm/dry OBJ DATA Labs CBC & Chem 7: 11/04/20 04:52 11/05/20 05:11 Labs: Abnormal Lab Results 11/05/20 11/05/20 11/04/20 05:11 05:11 04:52 RBC 3.92 L Hgb 12.1 L Hct 38.2 L MPV 10.8 H Neut % (Auto) 86.1 H Lymph % (Auto) 9.0 L Lymph # (Auto) 0.54 L ABG Methemoglobin VBG pH VBG pCO2 VBG pO2 VBG HCO3 VBG Total CO2 VBG O2 Saturation VBG Base Excess Carboxyhemoglobin Total Hemoglobin BUN 44 H Creatinine 1.3 H Glucose Calcium 8.4 L Lactate Dehydrogenase Total Protein Albumin LDL Cholesterol, Calc Non-HDL Cholesterol HDL Cholesterol Procalcitonin 21.67 H Urine Appearance Urine Protein Urine Mucus 11/04/20 11/04/20 11/03/20 04:52 04:51 18:34 RBC Hgb Hct MPV Neut % (Auto) Lymph % (Auto) Lymph # (Auto) ABG Methemoglobin 0.1 L VBG pH VBG pCO2 40.9 L VBG pO2 53.6 H VBG HCO3 23.8 L VBG Total CO2 VBG O2 Saturation 83.1 H VBG Base Excess Carboxyhemoglobin 3.0 H Total Hemoglobin 13.2 L BUN 38 H Creatinine 1.3 H Glucose 110 H Calcium 7.8 L Lactate Dehydrogenase 284 H Total Protein 5.5 L Albumin 2.9 L LDL Cholesterol, Calc Non-HDL Cholesterol HDL Cholesterol Procalcitonin 28.89 H Urine Appearance Urine Protein Urine Mucus 11/03/20 11/03/20 11/03/20 15:22 12:23 04:46 RBC Hgb Hct MPV Neut % (Auto) Lymph % (Auto) Lymph # (Auto) ABG Methemoglobin 0.3 L VBG pH 7.30 L VBG pCO2 VBG pO2 61.2 H VBG HCO3 20.0 L VBG Total CO2 21.3 L VBG O2 Saturation 82.0 H VBG Base Excess -6 L Carboxyhemoglobin 8.4 H Total Hemoglobin BUN Creatinine Glucose Calcium Lactate Dehydrogenase Total Protein Albumin LDL Cholesterol, Calc 118 H Non-HDL Cholesterol 131 H HDL Cholesterol 39 L Procalcitonin Urine Appearance Hazy A Urine Protein 30 A Urine Mucus Few A Meds: Medications Glucose Oxid/Lactoperoxid/Muramidas (Biotene) 1 each TOPICAL PRN PRN PRN Reason: Dry Mouth Lorazepam (Ativan) 0 mg IV Q1HP PRN; Protocol PRN Reason: ANXIETY/SEDATION Last Admin: 11/06/20 04:52 Dose: 2 mg Documented by: Lorazepam (Ativan) 0.5 mg IV Q6HP PRN PRN Reason: ANXIETY/SEDATION Morphine Sulfate (Morphine) 0 mg IV Q1HP PRN PRN Reason: Pain Last Admin: 11/06/20 04:51 Dose: 4 mg Documented by: Morphine Sulfate (Morphine) 4 mg NEB Q4HP PRN PRN Reason: Shortness Of Breath Ondansetron HCl (Zofran Odt) 4 mg SL Q4HP PRN; Protocol PRN Reason: Nausea And Vomiting Last Admin: 11/05/20 17:25 Dose: 4 mg Documented by: Ondansetron HCl (Zofran) 4 mg IV Q4HP PRN; Protocol PRN Reason: Nausea And Vomiting Sodium Chloride (Saline Flush) 10 ml IV Q8 MATTEO Last Admin: 11/06/20 05:17 Dose: 10 ml Documented by: ABG Interpretation ABG results: 11/03/20 11/03/20 15:22 18:34 ABG Methemoglobin 0.3 L 0.1 L VBG pH 7.30 L 7.38 VBG pCO2 41.8 40.9 L VBG pO2 61.2 H 53.6 H VBG HCO3 20.0 L 23.8 L VBG Total CO2 21.3 L 25.1 VBG O2 Saturation 82.0 H 83.1 H VBG Base Excess -6 L -1 A/P Narrative A/P Narrative: A: *CAP, most likely Aspiration: *Sepsis: *Hypotension: resolved with IVF's *Acute hypoxic respiratory failure: 2/ above *COPD(has been on 2L O2@facility for last several weeks): *Afib/flutter RVR: on eliquis and BB *Oropharyngeal Dysphagia, moderate: aspirating on ST exam *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
--- NOTE | 2020-11-06 10:34 | Death Note ---
Discharge Sum: Prov Provider Patient information: Note initiated : 11/06/20 at 10:33 am Service Date, if different from initiated Date: [] Patient: Lincoln Parks 85 y/o M admitted on 11/03/20 for breathing difficulty. Chief Complaint: [] Primary care physician: Maximiliano Brown MD Consults: 11/03/20 Consult to Physician [CONS] Stat Comment: Consulting Provider: Antonio Song Reason For Exam: Physician to Consult Discharge Sum: Summary Date and Time Date of admission: 11/03/20 09:51 Summary Details: History of present illness: Mr. Parks is a 85 year old M Presents from the [facility] brought in by EMS because he was short of breath and he was hypoxic. He is 75% on arrival. Even nebulizers and supplemental oxygen. His blood pressure initially was 84/48 and was given 250 cc bolus of fluid which brought him up into the 1 teens and has had good pressure since then. He was on a nonrebreather 10 L in the ER and in the ICU he is currently on 8 L high flow nasal cannula. Covid test is negative. Chest x-ray shows moderate right infiltrate and some patchy on the left. Had a fever and elevated white blood cell count. He had elevated pro calcitonin. His creatinine was elevated above baseline. Patient states he has a productive cough of yellow sputum which he thinks is may be worse than baseline. He has shortness of breath but he says that is normal for him. Family reports that some of his sputum had trace blood in it. Is also feet found to be in A. fib RVR with a rate of 130 and was given Lopressor IV with good results. 11/04 Feeling little better today. Has productive cough. Shortness of breath present but improved from yesterday. Was on BiPAP yesterday evening and all night. He is on oxygen mask currently. Was febrile in the middle of the night. Pending blood and sputum cultures. Leukocytosis resolved. Calcitonin elevated. 11/05 Was off BiPAP yesterday morning for a while but then had to go back on and was on BiPAP last night ,on 70%. was placed on high flow this morning for meds but desatted quickly. Has been talking with the daughter past couple days but is tenuous state. Will need to have a care conference likely as he is not making any improvement. He did quite poorly with speech therapy evaluation yesterday. He has episodes of confusion. We had a family care conference with all 3 daughters which included the POA. We discussed his current condition and his failure to make any meaningful recovery, he has become dependent on the BiPAP at this time. Discussed his other significant comorbidities. During this discussion with family it was decided to transition to comfort focus. Once his other 2 daughters are able to come in and see him then Carmen the [facility] will let us know that they are ready for complete comfort care at that time. 11/06 Patient transition to comfort care last night. Unresponsive. Breathing pattern change. Patient @ 1018. 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
== END 2020-11-06 12:06 | disposition expired | DRG 871 ==
LOC: ED 04:03 → ICU 09:51
PROVIDERS: ADMIT Internal Medicine; ATTEND Internal Medicine